=== PATIENT | female | born 1985 | race Caucasian/White ===

== ENCOUNTER 2016-09-02 18:32 | Emergency (ER) | payer MEDICAID ==
[2016-09-02] MEDS ORDERED: CLINDAMYCIN 150 MG CAPSULE PO STA (19:35)
[2016-09-02] MEDS ORDERED: CLINDAMYCIN 150 MG CAPSULE PO ONE (19:36)
== END 2016-09-02 19:38 | disposition home or self-care (01) ==
DX: O23.11 Infections of bladder in pregnancy, first trimester (principal); B95.62 Methicillin resistant Staphylococcus aureus infection as the cause of diseases classified elsewhere; O99.89 Other specified diseases and conditions complicating pregnancy, childbirth and the puerperium; R03.0 Elevated blood-pressure reading, without diagnosis of hypertension; Z3A.01 Less than 8 weeks gestation of pregnancy
CPT/HCPCS: 99283; A9270

== ENCOUNTER 2018-08-13 10:28 | Emergency (ER) | payer MEDICAID ==
[2018-08-13] MEDS ORDERED: TETANUS/DIPHTHERIA/PERTUSSIS 0.5 ML SYRINGE IM ONE (13:44)
[2018-08-13] MEDS ORDERED: AMOX/CLAV 875 MG/125 MG TABLET PO STA (13:44)
[2018-08-13 14:06] VITALS: BP 135/85
--- NOTE | 2018-08-13 14:12 | ED Physician Documentation ---
PD HPI ANIMAL BITE - Stated complaint Stated Complaint: DOG BITE/L HAND - Chief complaint Chief Complaint: Laceration - History obtained from History obtained from: Patient - History of Present Illness Location of injury(ies): Left hand Details of the event: Dog Timing - onset: How many hours ago (2) Similar symptoms before: Has not had sx before - Additional information Additional information: The patient is a 32-year-old female who was bitten in the left hand by a stray dog this morning when she was trying to keep her dog and the other dog from interacting. She is right-hand dominant. She denies any other injuries. Her last tetanus booster is unknown. The dog's rabies vaccination status is unknown. Review of Systems Constitutional: denies: Fever Skin: reports: Bite / sting Musculoskeletal: denies: Extremity swelling Neurologic: denies: Focal weakness, Numbness PD PAST MEDICAL HISTORY - Past Medical History Endocrine/Autoimmune: None : Chronic bladder infection - Past Surgical History Past Surgical History: Yes General: Colonoscopy - Present Medications Home Medications: Ambulatory Orders Medication Instructions Recorded Confirmed Clindamycin [Cleocin] 300 mg PO Q6H 7 Days capsule 09/02/16 Amox/Clav 875/125 [Augmentin] 1 each PO Q12H #10 tablet 08/13/18 - Allergies Allergies/Adverse Reactions: Allergies Allergy/AdvReac Type Severity Reaction Status Date / Time No Known Drug Allergies Allergy Verified 09/02/16 18:44 - Social History Does the pt smoke?: No Smoking Status: Never smoker Does the pt drink ETOH?: No Does the pt have substance abuse?: No - Immunizations Immunizations are current?: No Immunizations: TDAP >10years/unknown PD ED PE NORMAL - Vitals Vital signs reviewed: Yes (normal) - General General: Alert and oriented X 3, Well developed/nourished - HEENT HEENT: Atraumatic - Respiratory Respiratory: No respiratory distress - Derm Derm: No rash - Extremities Extremities: Other (There is a puncture wound on the dorsal aspect of the left hand at the base of the thumb. She has full flexion and extension of the IP and MCP joints, against resistance. Distal neurovascular is intact.) - Neuro Neuro: Alert and oriented X 3, No motor deficit, No sensory deficit Results - Vitals Vitals: Vital Signs - 24 hr 03/22/19 03/22/19 11:15 14:04 Temperature 36.6 C 36.5 C Heart Rate 86 95 Respiratory 18 16 Rate Blood Pressure 134/83 H 135/85 H O2 Saturation 99 100 Oxygen O2 Source Room air PD MEDICAL DECISION MAKING - ED course Complexity details: re-evaluated patient, considered differential, d/w patient ED course: The patient's presentation is significant for a dog bite to the left hand with an associated puncture wound. There is no clinical evidence to suggest a bony abnormality, nerve or tendon injury, or foreign body. Treatment in the emergency department included cleaning of the wound, administration of Augmentin 875 mg orally, and administration of tetanus booster IM. She is being discharged with prescription for Augmentin. I discussed with her the expected course of injury, antibiotic treatment and outpatient follow-up, as well as potentially worrisome signs or symptoms that should prompt reevaluation in the emergency department. Departure - Departure Disposition: 01 Home, Self Care Clinical Impression: Dog bite Qualifiers: Encounter type: initial encounter Qualified Code(s): W54.0XXA - Bitten by dog, initial encounter Condition: Stable Instructions: ED Bite Animal General Prescriptions: Amox/Clav 875/125 [Augmentin] 1 each PO Q12H #10 tablet Comments: Keep the wound clean, and apply antibiotic ointment daily. Take Augmentin twice daily as prescribed. Follow-up with your primary physician within 1 week if not completely resolved. Return to the emergency department if you develop increasing redness, swelling, or otherwise worsening symptoms. Discharge Date/Time: 08/13/18 14:22
== END 2018-08-13 14:22 | disposition home or self-care (01) ==
LOC: ED 10:28
DX: S61.432A Puncture wound without foreign body of left hand, initial encounter (principal); W54.0XXA Bitten by dog, initial encounter; Z23 Encounter for immunization
CPT/HCPCS: 90471; 90715; 99283; A9270

== ENCOUNTER 2018-08-23 19:12 | Emergency (ER) | payer MEDICAID ==
--- NOTE | 2018-08-23 19:57 | XRAY Report ---
Reason: injury Procedure Date: 08/23/2018 Accession Number: [id number] / [id number] Procedure: XR - Elbow 3 View LT CPT Code: FULL RESULT: EXAM: LEFT ELBOW RADIOGRAPHY EXAM DATE: 08/23/2018 07:49 PM. CLINICAL HISTORY: Injury. COMPARISON: None. TECHNIQUE: 3 views. FINDINGS: Bones: Normal. No fractures or bone lesions. Joints: Normal. No effusion. No subluxation. Soft Tissues: Normal. No soft tissue swelling. IMPRESSION: Normal elbow radiography. RADIA
--- NOTE | 2018-08-23 20:00 | ED Physician Documentation ---
PD HPI UPPER EXT INJURY - Stated complaint Stated Complaint: L ELBOW INJ - Chief complaint Chief Complaint: Ext Problem - History obtained from History obtained from: Patient - History of Present Illness Location: Left, Elbow Type of injury: Fall (slipped on wet floor and landed to elbow. Pain at elbow and numbness to left little fingers.) Where injury occurred: Home Timing - onset: Today Timing - details: Abrupt onset, Still present Worsened by: Moving, Palpating Associated symptoms: Numbness (little finger). No: Weakness Contributing factors: No: Anticoagulated Recently seen: Not recently seen Review of Systems Skin: denies: Abrasion (s), Laceration (s) Neurologic: denies: Confused, Altered mental status, Headache, Head injury PD PAST MEDICAL HISTORY - Past Medical History Past Medical History: No Endocrine/Autoimmune: None : Chronic bladder infection - Past Surgical History Past Surgical History: Yes General: Colonoscopy - Present Medications Home Medications: Ambulatory Orders Medication Instructions Recorded Confirmed Clindamycin [Cleocin] 300 mg PO Q6H 7 Days capsule 09/02/16 Amox/Clav 875/125 [Augmentin] 1 each PO Q12H #10 tablet 08/13/18 - Allergies Allergies/Adverse Reactions: Allergies Allergy/AdvReac Type Severity Reaction Status Date / Time No Known Drug Allergies Allergy Verified 09/02/16 18:44 - Social History Does the pt smoke?: No Smoking Status: Never smoker Does the pt drink ETOH?: No Does the pt have substance abuse?: No - Immunizations Immunizations are current?: No Immunizations: TDAP >10years/unknown PD ED PE NORMAL - Vitals Vital signs reviewed: Yes - General General: Alert and oriented X 3, No acute distress, Well developed/nourished - HEENT HEENT: Atraumatic - Neck Neck: Supple, no meningeal sign, No bony TTP - Derm Derm: Normal color, Warm and dry - Extremities Extremities: Other (left elbow with posterior tenderness. No deformity nor effusion. Normal sanitarian inspector in hand. Less sensation to touch on little finger. Good color and cap refill. Reluctant but normal motor. ) Results - Vitals Vitals: Vital Signs - 24 hr 08/23/18 08/23/18 19:15 20:34 Temperature 37.2 C 36.7 C Heart Rate 100 60 Respiratory 16 16 Rate Blood Pressure 145/88 H 117/81 H O2 Saturation 99 99 Oxygen O2 Source Room air - Rads (name of study) left elbow Radiology: Prelim report reviewed (no fractures nor effusion), See rad report Departure - Departure Disposition: 01 Home, Self Care Clinical Impression: Fall from slip, trip, or stumble Qualifiers: Encounter type: initial encounter Qualified Code(s): W01.0XXA - Fall on same level from slipping, tripping and stumbling without subsequent striking against object, initial encounter Elbow contusion Qualifiers: Encounter type: initial encounter Laterality: left Qualified Code(s): S50.02XA - Contusion of left elbow, initial encounter Condition: Stable Record reviewed to determine appropriate education?: Yes Instructions: ED Contusion Elbow Comments: Sling for the arm to elevate it and protect motion for the next couple a few days as needed. Ibuprofen or naproxen 2-3 times a day for pain and swelling. Progress activity and use as able. Recheck if not better over a week. Forms: Activity restrictions Discharge Date/Time: 08/23/18 20:35
[2018-08-23] MEDS ORDERED: IBUPROFEN 600 MG TABLET PO STA (20:08)
[2018-08-23 20:34] VITALS: BP 117/81
== END 2018-08-23 20:35 | disposition home or self-care (01) ==
LOC: ED 19:12
DX: S50.02XA Contusion of left elbow, initial encounter (principal); W01.0XXA Fall on same level from slipping, tripping and stumbling without subsequent striking against object, initial encounter; Y92.009 Unspecified place in unspecified non-institutional (private) residence as the place of occurrence of the external cause
CPT/HCPCS: 73080; 99283; A9270

== ENCOUNTER 2018-11-04 07:57 | Emergency (ER) | payer MEDICAID ==
--- NOTE | 2018-11-04 08:53 | ED Physician Documentation ---
PD HPI SKIN - Stated complaint Stated Complaint: feet hurt - Chief complaint Chief Complaint: Ext Problem - History obtained from History obtained from: Patient - History of Present Illness Timing - onset: How many weeks ago (2) Timing - duration: Weeks (2) Timing - details: Gradual onset, Still present, Constant. No: Waxing and waning Location: Other (plantar aspect both feet, with redness, feeling of swelling. No noted vesicles nor drainage. Tender for walking. 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 Not persistently wet feet.) Quality / character: Burning, Discolored (red), Swelling (plantar aspects only). No: Itchy, Vesicular, Draining Associated symptoms: No: Myalgias Contributing factors: Other (denies chemical exposures at work, but is on feet with work boots for all day.). No: Exposed to Poison zuhair/oak, Insect bite /sting Similar symptoms before: Has not had sx before Recently seen: Not recently seen Review of Systems Constitutional: reports: Myalgias. denies: Fever, Chills, Fatigue Nose: denies: Rhinorrhea / runny nose, Congestion Throat: denies: Sore throat Respiratory: denies: Cough GI: denies: Nausea, Vomiting, Diarrhea Skin: reports: Rash (redness on plantar aspects feet, more toward the base great toe and between toes.) Musculoskeletal: denies: Neck pain, Back pain, Extremity swelling PD PAST MEDICAL HISTORY - Past Medical History Cardiovascular: None Neuro: None Endocrine/Autoimmune: None : Chronic bladder infection Musculoskeletal: None - Past Surgical History Past Surgical History: Yes General: Colonoscopy - Present Medications Home Medications: Ambulatory Orders Medication Instructions Recorded Confirmed Clindamycin [Cleocin] 300 mg PO Q6H 7 Days capsule 09/02/16 Amox/Clav 875/125 [Augmentin] 1 each PO Q12H #10 tablet 08/13/18 Clotrimazole/Betamethasone Dip 1 applic TP BID #15 cream..g. 11/04/18 [Lotrisone Cream] Naproxen 500 mg PO BID #20 tablet 11/04/18 - Allergies Allergies/Adverse Reactions: Allergies Allergy/AdvReac Type Severity Reaction Status Date / Time No Known Drug Allergies Allergy Verified 11/04/18 08:22 - Social History Does the pt smoke?: No Smoking Status: Never smoker Does the pt drink ETOH?: No Does the pt have substance abuse?: No - Immunizations Immunizations are current?: No Immunizations: TDAP >10years/unknown PD ED PE NORMAL - Vitals Vital signs reviewed: Yes - General General: Alert and oriented X 3, No acute distress, Well developed/nourished - Neck Neck: Supple, no meningeal sign, No adenopathy - Cardiac Cardiac: RRR, No murmur - Respiratory Respiratory: Clear bilaterally - Back Back: No CVA TTP - Derm Derm: Normal color, Warm and dry - Extremities Extremities: Other (both feet with some redness plantar aspects that demarcates on the sides. There is redness to the top of both feet around the webspace of great/2nd toe and to MTP area great toe. ) - Neuro Neuro: No motor deficit, No sensory deficit (hypersensitive on the bottoms of the feet. No vesicles nor drainage. ) Results - Vitals Vitals: Vital Signs - 24 hr 11/04/18 11/04/18 08:19 11:24 Temperature 36.5 C 36.7 C Heart Rate 94 77 Respiratory 14 17 Rate Blood Pressure 151/99 H 125/87 H O2 Saturation 99 99 Oxygen O2 Source Room air - Labs Labs: Laboratory Tests 11/04/18 11/04/18 11/04/18 09:33 09:33 09:33 WBC 8.0 RBC 4.32 Hgb 13.3 Hct 39.7 MCV 92.0 MCH 30.7 MCHC 33.4 RDW 12.9 Plt Count 288 MPV 8.6 Neut # (Auto) 5.3 Lymph # (Auto) 1.7 Kerr # (Auto) 0.8 Eos # (Auto) 0.2 Baso # (Auto) 0.0 Absolute Nucleated RBC 0.01 Nucleated RBC % 0.1 ESR 12 Sodium 136 Potassium 3.6 Chloride 105 Carbon Dioxide 20 L Anion Gap 11.0 BUN 21 H Creatinine 0.7 Estimated GFR (MDRD) 97 Glucose 96 Calcium 9.0 Total Bilirubin 0.6 AST 54 H ALT 60 Alkaline Phosphatase 85 Total Protein 7.2 Albumin 4.2 Globulin 3.0 Albumin/Globulin Ratio 1.4 Lipase 34 TSH 11/04/18 09:33 WBC RBC Hgb Hct MCV MCH MCHC RDW Plt Count MPV Neut # (Auto) Lymph # (Auto) Kerr # (Auto) Eos # (Auto) Baso # (Auto) Absolute Nucleated RBC Nucleated RBC % ESR Sodium Potassium Chloride Carbon Dioxide Anion Gap BUN Creatinine Estimated GFR (MDRD) Glucose Calcium Total Bilirubin AST ALT Alkaline Phosphatase Total Protein Albumin Globulin Albumin/Globulin Ratio Lipase TSH 1.45 PD MEDICAL DECISION MAKING - ED course Complexity details: reviewed results, considered differential (seems likely mike a pedis. Consider neuropathy and can check sugar, TSH, lytes), d/w patient Departure - Departure Disposition: 01 Home, Self Care Clinical Impression: Pain in both feet Tinea pedis Qualifiers: Laterality: bilateral Qualified Code(s): B35.3 - Tinea pedis Condition: Stable Record reviewed to determine appropriate education?: Yes Prescriptions: Clotrimazole/Betamethasone Dip [Lotrisone Cream] 1 applic TP BID #15 cream..g. Naproxen 500 mg PO BID #20 tablet Comments: There is some redness and inflammation around the feet. I think this is likely mostly a fungal skin infection. Treated with the antifungal and anti- inflammatory creams twice daily on the red areas in the bottom of the foot. Use naproxen anti-inflammatory orally twice daily for the next 7 to 10 days. Take it with food. Recheck if not improving over the next several days to week. Forms: Activity restrictions Discharge Date/Time: 11/04/18 11:24
[2018-11-04] MEDS ORDERED: NAPROXEN 250 MG TABLET PO STA (09:22)
[2018-11-04 09:42] LABS: BASOPHILS % (AUTO) 0.6 %; EOSINOPHILS # (AUTO) 0.2 10^3/uL (0.0-0.7); EOSINOPHILS % (AUTO) 2.2 %; HGB - HEMOGLOBIN 13.3 g/dL (12.0-16.0); LYMPHOCYTES # (AUTO) 1.7 10^3/uL (1.5-3.5); LYMPHOCYTES % (AUTO) 21.3 %; MEAN CORPUSCULAR HEMOGLOBIN 30.7 pg (27.0-31.0); MEAN CORPUSCULAR HGB CONC 33.4 g/dL (32.0-36.0); MEAN PLATELET VOLUME 8.6 fL (7.9-10.8); MONOCYTES # (AUTO) 0.8 10^3/uL (0.0-1.0); MONOCYTES % (AUTO) 9.5 %; NEUTROPHILS # (AUTO) 5.3 10^3/uL (1.5-6.6); NEUTROPHILS % (AUTO) 66.4 %; PLT - PLATELET COUNT 288 10^3/uL (130-450); RED BLOOD COUNT 4.32 10^6/uL (4.20-5.40); RED CELL DISTRIBUTION WIDTH 12.9 % (12.0-15.0)
[2018-11-04 09:56] LABS: ALBUMIN 4.2 g/dL (3.2-5.5); ALBUMIN/GLOBULIN RATIO 1.4 (1.0-2.2); BILIRUBIN,TOTAL 0.6 mg/dL (0.2-1.0); CREATININE 0.7 mg/dL (0.4-1.0); TOTAL PROTEIN 7.2 g/dL (6.7-8.2)
[2018-11-04 11:26] VITALS: BP 125/87
== END 2018-11-04 11:24 | disposition home or self-care (01) ==
LOC: ED 07:57
DX: B35.3 Tinea pedis (principal); M79.671 Pain in right foot; M79.672 Pain in left foot
CPT/HCPCS: 36415; 80053; 83690; 84443; 85025; 85651; 99283; A9270

== ENCOUNTER 2019-07-10 20:11 | Outpatient (CLI) | payer MEDICAID ==
[2019-07-10 20:28] VITALS: BP 131/84
--- NOTE | 2019-07-10 23:00 | PROCEDURE REPORT ---
- HPI Diagnosis/Indication for NST: Decreased movement (ER visit) Current EDU 09/07/19 Gestation 31 Weeks and 4 Days 6 Para 4 Vital Signs Temperature 98.5 F 07/10/19 20:26 Heart Rate 81 07/10/19 20:26 Respiratory Rate 20 07/10/19 20:26 Blood Pressure 131/84 H 07/10/19 20:26 O2 Saturation 100 07/10/19 20:26 Temperature 98.5 F 07/10/19 20:26 Heart Rate 81 07/10/19 20:26 Respiratory Rate 20 07/10/19 20:26 Blood Pressure 131/84 H 07/10/19 20:26 O2 Saturation 100 07/10/19 20:26 - NST Procedure NST Procedure Start Date 07/10/19 Start Time 20:25 Stop Time 20:45 Vibroacoustic Stimulation Used No Patient States Movement Yes: decreased but present. - Results and Plan Findings/Impression: Pt came to ER for eval of cough and rib pain. She complained of decreased movement and so she was sent first to OB triage for evaluation. Pt speaking in full sentences. AVSS. No respiratory distress. NST category 1 [place] neg MVP 5.3cm ; ultrasound printer not functioning currently. A/P: reassuring well being. To ER for eval of cough.
== END 2019-07-10 20:50 | disposition home or self-care (01) ==
LOC: WFO 20:11 → FBP 20:12 → WFO 20:50
PROVIDERS: ATTEND Obstetrics & Gynecology
DX: O36.8130 Decreased fetal movements, third trimester, not applicable or unspecified (principal); Z3A.31 31 weeks gestation of pregnancy; R05 Cough; R07.81 Pleurodynia
CPT/HCPCS: 59025

== ENCOUNTER 2019-07-10 20:50 | Emergency (ER) | payer MEDICAID ==
--- NOTE | 2019-07-10 21:02 | ED Physician Documentation ---
History of Present Illness - Stated complaint Stated Complaint: COLD SX, LT SIDE PX - Chief complaint Chief Complaint: Resp - History obtained from History obtained from: Patient (Patient is a 33-year-old female who is a G5, P4 at 31 weeks by LMP presents with a chief complaint of a 2-week history of cough and now presents with left-sided rib pain she denies any trauma she denies any history of pulmonary embolism or DVT she denies any hemoptysis. She reports cold and flulike symptoms for the past 2 weeks and comes to the ER tonight for evaluation. The patient reports she has been feeling the baby move as usual she denies any vaginal bleeding or any leakage of fluid or any scotomas or headaches or lower extremity swelling. She did go to the OB floor and had an NST prior to arrival in the ER.) Review of Systems Constitutional: reports: Reviewed and negative Eyes: reports: Reviewed and negative Ears: reports: Reviewed and negative Nose: reports: Reviewed and negative Throat: reports: Reviewed and negative Cardiac: reports: Reviewed and negative Respiratory: reports: Cough, Other (Left-sided rib pain) GI: reports: Reviewed and negative : reports: Reviewed and negative Skin: reports: Reviewed and negative Musculoskeletal: reports: Reviewed and negative Neurologic: reports: Reviewed and negative Psychiatric: reports: Reviewed and negative Endocrine: reports: Reviewed and negative Immunocompromised: reports: Reviewed and negative PD PAST MEDICAL HISTORY - Past Medical History Cardiovascular: None Neuro: None Endocrine/Autoimmune: None : Chronic bladder infection Musculoskeletal: None - Past Surgical History Past Surgical History: Yes General: Colonoscopy - Present Medications Home Medications: Ambulatory Orders Medication Instructions Recorded Confirmed Clindamycin [Cleocin] 300 mg PO Q6H 7 Days capsule 09/02/16 Amox/Clav 875/125 [Augmentin] 1 each PO Q12H #10 tablet 08/13/18 Clotrimazole/Betamethasone Dip 1 applic TP BID #15 cream..g. 11/04/18 [Lotrisone Cream] Naproxen 500 mg PO BID #20 tablet 11/04/18 Benzonatate [Tessalon Perle] 100 mg PO BID #7 capsule 07/10/19 - Allergies Allergies/Adverse Reactions: Allergies Allergy/AdvReac Type Severity Reaction Status Date / Time No Known Drug Allergies Allergy Verified 07/10/19 21:01 - Social History Does the pt smoke?: No Smoking Status: Never smoker Does the pt drink ETOH?: No Does the pt have substance abuse?: No - Immunizations Immunizations are current?: No Immunizations: TDAP >10years/unknown PD ED PE NORMAL - Vitals Vital signs reviewed: Yes - General General: Alert and oriented X 3, No acute distress, Well developed/nourished - HEENT HEENT: Atraumatic, PERRL, Moist mucous membranes, Pharynx benign - Neck Neck: Supple, no meningeal sign, No JVD - Cardiac Cardiac: RRR, Strong equal pulses - Respiratory Respiratory: No respiratory distress, Clear bilaterally, Other (There is point tenderness over the left rib In the anterior axillary line of the ribs 6 and 7 in the intercostal space. There is no ecchymosis there is no crepitus.) - Abdomen Abdomen: Normal bowel sounds, Soft, Non tender, Non distended, Other (The abdomen is consistent with a 30-week gravid uterus.) - Female Female : Deferred - Derm Derm: Warm and dry - Extremities Extremities: No deformity - Neuro Neuro: Alert and oriented X 3 - Psych Psych: Normal mood, Normal affect Results - Vitals Vitals: Vital Signs - 24 hr 07/10/19 07/10/19 20:50 23:15 Temperature 36.7 C 36.6 C Heart Rate 87 79 Respiratory 16 18 Rate Blood Pressure 122/84 H 124/78 O2 Saturation 98 98 Oxygen O2 Source Room air - Labs Labs: Laboratory Tests 07/10/19 21:25 Urine Color YELLOW Urine Clarity CLEAR Urine pH 7.0 Ur Specific [place] 1.015 Urine Protein NEGATIVE Urine Glucose (UA) NEGATIVE Urine Ketones NEGATIVE Urine Occult Blood NEGATIVE Urine Nitrite NEGATIVE Urine Bilirubin NEGATIVE Urine Urobilinogen 0.2 (NORMAL) Ur Leukocyte Esterase NEGATIVE Ur Microscopic Review NOT INDICATED Urine Culture Comments NOT INDICATED PD MEDICAL DECISION MAKING - ED course Complexity details: other (Patient updated and reexamined she is well-appearing she reports good movement she reports that her rib discomfort has improved her chest x-ray is unremarkable. The patient was given a short-term treatment with Tessalon Perles for her cough. I explained all the benefits, alternatives and risks of taking Tessalon Perles the patient accepts all risks to include possible harm to the fetus although this unlikely.) Departure - Departure Disposition: 01 Home, Self Care Clinical Impression: Cough, Third trimester Intercostal muscle strain Qualifiers: Encounter type: initial encounter Qualified Code(s): S29.011A - Strain of muscle and tendon of front wall of thorax, initial encounter Condition: Good Instructions: ED URI Viral Follow-Up: Barbie Mcpherson MD [Primary Care Provider] - Tomorrow Prescriptions: Benzonatate [Tessalon Perle] 100 mg PO BID #7 capsule Discharge Date/Time: 07/10/19 23:16
[2019-07-10] MEDS ORDERED: ACETAMINOPHEN 325 MG TABLET PO STA (21:19)
[2019-07-10 21:37] LABS: BILIRUBIN,URINE NEGATIVE (NEGATIVE); GLUCOSE, URINE (UA) NEGATIVE (NEGATIVE); KETONES,URINE (UA) NEGATIVE (NEGATIVE); LEUKOCYTE ESTERASE, URINE NEGATIVE (NEGATIVE); NITRITE,URINE NEGATIVE (NEGATIVE); OCCULT BLOOD,URINE NEGATIVE (NEGATIVE); PROTEIN,URINE NEGATIVE (NEGATIVE); UROBILINOGEN,URINE 0.2 (NORMAL) E.U./dL (NORMAL)
[2019-07-10 21:39] LABS: CLARITY,URINE CLEAR (CLEAR)
--- NOTE | 2019-07-10 22:28 | XRAY Report ---
Reason: cough, left sided rib pain Procedure Date: 07/10/2019 Accession Number: [id number] / [id number] Procedure: XR - Chest 2 View X-Ray CPT Code: 21032 Final Report FULL RESULT: EXAM: CHEST RADIOGRAPHY EXAM DATE: 07/10/2019 09:47 PM. CLINICAL HISTORY: Cough, left sided rib pain. COMPARISON: None. TECHNIQUE: 2 views. FINDINGS: LUNGS: The lungs are clear. PLEURA: No significant pleural effusion. No clinically significant pneumothorax. MEDIASTINUM: The cardiomediastinal silhouette is unremarkable. BONES: No suspicious osseous lesions. IMPRESSION: No acute cardiopulmonary abnormality. RADIA
[2019-07-10 23:16] VITALS: BP 124/78
== END 2019-07-10 23:16 | disposition home or self-care (01) ==
LOC: ED 20:50
DX: O99.89 Other specified diseases and conditions complicating pregnancy, childbirth and the puerperium (principal); R05 Cough; S29.011A Strain of muscle and tendon of front wall of thorax, initial encounter; X58.XXXA Exposure to other specified factors, initial encounter; Z3A.31 31 weeks gestation of pregnancy; O36.8130 Decreased fetal movements, third trimester, not applicable or unspecified
CPT/HCPCS: 59025; 71046; 81003; 99284; 99285; A9270; 81001; 87086

== ENCOUNTER 2021-05-14 15:11 | Outpatient (CLI) | payer MEDICAID ==
[2021-05-14 18:01] LABS: BILIRUBIN,URINE NEGATIVE (NEGATIVE); GLUCOSE, URINE (UA) NEGATIVE (NEGATIVE); KETONES,URINE (UA) TRACE mg/dL (NEGATIVE); LEUKOCYTE ESTERASE, URINE SMALL (NEGATIVE); NITRITE,URINE NEGATIVE (NEGATIVE); OCCULT BLOOD,URINE MODERATE (NEGATIVE); PROTEIN,URINE 30 mg/dL (NEGATIVE); UROBILINOGEN,URINE 0.2 (NORMAL) E.U./dL (NORMAL)
[2021-05-14 18:02] LABS: CLARITY,URINE CLOUDY (CLEAR)
== END 2021-05-14 15:12 | disposition home or self-care (01) ==
LOC: LAB.N 15:11
PROVIDERS: ATTEND Specialist
DX: R39.9 Unspecified symptoms and signs involving the genitourinary system (principal)
CPT/HCPCS: 81003; 87086

== ENCOUNTER 2021-06-17 21:48 | Outpatient (CLI) | payer MEDICAID | END 2021-06-17 21:49 | disposition critical access hospital (66) | LOC: EMS 21:48 | DX: O99.891 Other specified diseases and conditions complicating pregnancy (principal); R53.83 Other fatigue; R11.0 Nausea; R63.0 Anorexia; M79.10 Myalgia, unspecified site; R53.1 Weakness; Z20.822 Contact with and (suspected) exposure to COVID-19 | CPT/HCPCS: A0425; A0429 ==

== ENCOUNTER 2021-06-17 22:06 | Emergency (ER) | payer MEDICAID ==
[2021-06-17] MEDS ORDERED: SODIUM CHLORIDE 0.9% 1,000 ML IV STA (22:17)
[2021-06-17] MEDS ORDERED: ACETAMINOPHEN 500 MG TABLET PO STA (22:17)
[2021-06-17] MEDS ORDERED: ONDANSETRON 4 MG/2 ML VIAL IVP STA (22:17)
--- NOTE | 2021-06-17 22:18 | ED Physician Documentation ---
History of Present Illness - Stated complaint Stated Complaint: BODY PX/NAUSEA/C+ EXPOSURE - History obtained from History obtained from: Patient, EMS - Additonal information Additional information: G8, P5 at 23 weeks gestation, she is not vaccinated against COVID and multiple people in her family are positive for Covid. She has been sick for about 5 days with profound fatigue, nausea, poor appetite, and body aches. Denies cramping or bleeding. No shortness of breath. Review of Systems Constitutional: reports: Chills, Myalgias Nose: denies: Rhinorrhea / runny nose Throat: denies: Sore throat GI: reports: Nausea. denies: Diarrhea Musculoskeletal: denies: Neck pain, Back pain PD PAST MEDICAL HISTORY - Past Medical History Cardiovascular: None Neuro: None Endocrine/Autoimmune: None : Chronic bladder infection Musculoskeletal: None - Past Surgical History Past Surgical History: Yes General: Colonoscopy - Present Medications Home Medications: Ambulatory Orders Medication Instructions Recorded Confirmed Clindamycin [Cleocin] 300 mg PO Q6H 7 Days capsule 09/02/16 Amox/Clav 875/125 [Augmentin] 1 each PO Q12H #10 tablet 08/13/18 Clotrimazole/Betamethasone Dip 1 applic TP BID #15 cream..g. 11/04/18 [Lotrisone Cream] Naproxen 500 mg PO BID #20 tablet 11/04/18 Benzonatate [Tessalon Perle] 100 mg PO BID #7 capsule 07/10/19 Ondansetron Odt [Zofran] 4 mg TL Q6H PRN #10 tablet 06/17/21 - Allergies Allergies/Adverse Reactions: Allergies Allergy/AdvReac Type Severity Reaction Status Date / Time No Known Drug Allergies Allergy Verified 07/10/19 21:01 - Social History Does the pt smoke?: No Smoking Status: Never smoker Does the pt drink ETOH?: No Does the pt have substance abuse?: No - Immunizations Immunizations are current?: No Immunizations: TDAP >10years/unknown PD ED PE NORMAL - Vitals Vital signs reviewed: Yes - General General: Alert and oriented X 3, No acute distress - HEENT HEENT: PERRL, EOMI - Neck Neck: Supple, no meningeal sign, No bony TTP - Cardiac Cardiac: RRR, No murmur - Respiratory Respiratory: No respiratory distress, Clear bilaterally - Abdomen Abdomen: Normal bowel sounds, Soft, Non tender, Other (Bedside ultrasound shows single live intrauterine with a heart rate of about 150.) - Back Back: No CVA TTP, No spinal TTP - Derm Derm: Normal color, Warm and dry - Extremities Extremities: No edema, No calf tenderness / cord - Neuro Neuro: Alert and oriented X 3, Normal speech Results - Vitals Vitals: Vital Signs - 24 hr 06/17/21 06/17/21 06/17/21 22:24 22:28 23:00 Temperature 37.0 C 37.0 C Heart Rate 79 79 74 Respiratory 17 17 18 Rate Blood Pressure 101/73 101/73 110/76 O2 Saturation 98 98 100 06/18/21 00:37 Temperature Heart Rate 74 Respiratory 16 Rate Blood Pressure 102/72 O2 Saturation 100 Oxygen O2 Source Room air - Labs Labs: Laboratory Tests 06/17/21 06/17/21 22:32 22:32 WBC 4.6 L RBC 4.13 L Hgb 13.2 Hct 37.7 MCV 91.3 MCH 32.0 H MCHC 35.0 RDW 12.1 Plt Count 244 MPV 10.8 Neut # (Auto) 3.0 Lymph # (Auto) 1.1 L [place] # (Auto) 0.4 Eos # (Auto) 0.0 Baso # (Auto) 0.0 Absolute Nucleated RBC 0.00 Nucleated RBC % 0.0 Sodium 134 L Potassium 3.5 Chloride 107 Carbon Dioxide 18 L Anion Gap 9.0 BUN 9 Creatinine 0.6 Estimated GFR (MDRD) 114 Glucose 89 Calcium 8.4 L Magnesium 1.8 Total Bilirubin 0.3 AST 14 ALT 16 Alkaline Phosphatase 88 Total Protein 6.4 L Albumin 3.1 L Globulin 3.3 Albumin/Globulin Ratio 0.9 L PD MEDICAL DECISION MAKING - ED course ED course: 35-year-old woman who is presents with likely COVID with classic viral syndrome. Feeling better after Tylenol, Zofran, and IV fluids. Discussed the need for quarantine. Departure - Departure Disposition: 01 Home, Self Care Clinical Impression: Viral syndrome Condition: Good Record reviewed to determine appropriate education?: Yes Instructions: ED Viral Syndrome Prescriptions: Ondansetron Odt [Zofran] 4 mg TL Q6H PRN #10 tablet PRN Reason: Nausea / Vomiting Comments: You have a Covid test pending. You need to self quarantine until the result is done and negative. Do not leave your house. Do not get near anybody. The results should be done in 48 to 72 hours. We will call with a positive result, the fastest way to get a negative result for confirmation though is to go to the hospital website at [email or web address], click on the my [email or web address] tab and sign up for the patient portal. If any friends or family get sick and would like to have a Covid test done, but do not have signs or symptoms that would necessitate being hospitalized, there are multiple local options for Covid testing. [facility] keeps an updated list of testing and vaccination options at: [email or web address]. I sent a prescription for nausea medication to [facility] in [place]. He will need to have someone else go pick that up, someone who is not sick and who has not been exposed to Covid and they can drop it off for you. Take Tylenol per package instructions as needed for the aches and pains. Discharge Date/Time: 06/18/21 01:12
[2021-06-17 22:36] LABS: BASOPHILS % (AUTO) 0.2 %; EOSINOPHILS % (AUTO) 0.4 %; HCT - HEMATOCRIT 37.7 % (37.0-47.0); HGB - HEMOGLOBIN 13.2 g/dL (12.0-16.0); LYMPHOCYTES # (AUTO) 1.1 10^3/uL (1.5-3.5); LYMPHOCYTES % (AUTO) 24.6 %; MEAN CORPUSCULAR VOLUME 91.3 fL (81.0-99.0); MEAN PLATELET VOLUME 10.8 fL (7.9-10.8); MONOCYTES # (AUTO) 0.4 10^3/uL (0.0-1.0); MONOCYTES % (AUTO) 8.9 %; NEUTROPHILS % (AUTO) 65.9 %; PLT - PLATELET COUNT 244 10^3/uL (130-450); RED BLOOD COUNT 4.13 10^6/uL (4.20-5.40); RED CELL DISTRIBUTION WIDTH 12.1 % (12.0-15.0); WHITE BLOOD COUNT 4.6 x10^3/uL (4.8-10.8)
[2021-06-17 22:49] LABS: ALBUMIN 3.1 g/dL (3.2-5.5); ALBUMIN/GLOBULIN RATIO 0.9 (1.0-2.2); BILIRUBIN,TOTAL 0.3 mg/dL (0.2-1.0); CALCIUM 8.4 mg/dL (8.5-10.3); CREATININE 0.6 mg/dL (0.4-1.0); MAGNESIUM 1.8 mg/dL (1.7-2.8); POTASSIUM 3.5 mmol/L (3.5-5.0); TOTAL PROTEIN 6.4 g/dL (6.7-8.2)
[2021-06-17] MEDS ORDERED: LACTATED RINGERS 1,000 ML IV STA (23:02)
[2021-06-18 00:39] VITALS: BP 102/72
== END 2021-06-18 01:12 | disposition home or self-care (01) ==
LOC: EDUNIT# → ED 22:06
DX: O98.512 Other viral diseases complicating pregnancy, second trimester (principal); U07.1 COVID-19; B34.9 Viral infection, unspecified; Z3A.23 23 weeks gestation of pregnancy
CPT/HCPCS: 36415; 80053; 83735; 85025; 87635; 96361; 96374; 99283; A9270; J7120

== ENCOUNTER 2021-06-18 01:07 | Outpatient (CLI) | payer MEDICAID | END 2021-06-18 01:08 | disposition home or self-care (01) | LOC: EMS 01:07 | PROVIDERS: ATTEND Emergency Medicine | DX: U07.1 COVID-19 (principal) | CPT/HCPCS: A0425; A0428 ==

== ENCOUNTER 2021-12-24 13:21 | Emergency (ER) | payer MEDICAID ==
--- OUTSIDE RECORDS SUMMARY | 2021-12-24 13:28 | EXTERNAL MEDICAL SUMMARY RPT | Continuity of Care Document ---
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 6 unknown) (unknown) (no (unknown) (unknown) Number of fetuses:: Single (units (unknown) date) unknown) (unknown) (no (unknown) (unknown) Nutrition and weight gain (units (unknown) date) counseling: special diet: unkn own) further discussion needed (unknown) (no (unknown) (unknown) OB Visit Log (units (u nknown) date) unknown) (unknown) (no (unknown) (unknown) On control at (unit s (unknown) date) conception?: No unknown) (unknown) (no (unknown) (unknown) PFSH (units (unkno wn) date) unknown) (unknown) (no (unknown) (unknown) IN QD-BID PRN #30 g (unit s (unknown) date) 03/13/21 [Rx Confirmed unknown ) 10/17/21] (unknown) (no (unknown) (unknown) PRN to see if it is more (units (unknown) date) effective. Initial blood unkn own) pressure today is mildly (unknown) (no (unknown) (unknown) Painful menstrual periods (units (unknown) date) unknown) (unknown) (no (unknown) (unknown) Para 6 (units ( unknown) date) Spontaneous abortions unknown) 2 (unknown) (no (unknown) (unknown) Para: 6 (units (unkno wn) date) unknown) (unknown) (no (unknown) (unknown) Partner history of STD: ( units (unknown) date) denies hx unknown) (unknown) (no (unknown) (unknown) Partner history of genital (units (unknown) date) herpes: No unknown) (unknown) (no (unknown) (unknown) Partner: Serafin Avila ( units (unknown) date) unknown) (unknown) (no (unknown) (unknown) Past Pregnancies (units (unknown) date) unknown) (unknown) (no (unknown) (unknown) Patient's age 36 years or (units (unknown) date) older as of estimated date unk nown) of delivery: Yes (unknown) (no (unknown) (unknown) Patient: Nova Gonzales (units (unknown) date) MR#: [id number] unknown) (unknown) (no (unknown) (unknown) [facility] (units (unknown) date) mos. other [place] unknow n) (unknown) (no (unknown) (unknown) Personal history of STD: (units (unknown) date) HPV (-2013, next Pap was unkno wn) normal, was told to (unknown) (no (unknown) (unknown) Personal history of (unit s (unknown) date) genital herpes: No unknown) (unknown) (no (unknown) (unknown) Pitocin augmentation x 2 ( units (unknown) date) days. +MRSA in urine unknown) afterwards, treated with oral Abx. (unknown) (no (unknown) (unknown) Position Sitting (unit s (unknown) date) unknown) (unknown) (no (unknown) (unknown) Post (units (un known) date) unknown) (unknown) (no (unknown) (unknown) Sterilization: (units (unknown) date) yes (If unscheduled C/S, unkno wn) may want tubal: please (unknown) (no (unknown) (unknown) depression (un its (unknown) date) associated with second unknown ) (unknown) (no (unknown) (unknown) History (units (unknown) date) unknown) (unknown) (no (unknown) (unknown) type:: Other (u nits (unknown) date) Normal unknown) (unknown) (no (unknown) (unknown) Education (units (unknown) date) unknown) (unknown) (no (unknown) (unknown) Initial (units (unknown) date) Assessment unknown) (unknown) (no (unknown) (unknown) Specific (units (unknown) date) Issues/Plans unknown) (unknown) (no (unknown) (unknown) Testing: (units (unknown) date) discussed unknown) (unknown) (no (unknown) (unknown) Visit (units (unknown) date) unknown) (unknown) (no (unknown) (unknown) education packet: (units (unknown) date) Child education/plan, un known) symptoms, (unknown) (no (unknown) (unknown) labor precautions (units (unknown) date) discussed along with petr unkn own) counts. (unknown) (no (unknown) (unknown) Primary Care Provider: (u nits (unknown) date) none at this time, her unkn own) retired (unknown) (no (unknown) (unknown) Primary Ob Provider: (uni ts (unknown) date) Javier Bishop unknown) (unknown) (no (unknown) (unknown) Prior GBS-Infected child: (units (unknown) date) No unknown) (unknown) (no (unknown) (unknown) Providers (units (unkn own) date) unknown) (unknown) (no (unknown) (unknown) Pt here for 6wk PP (units (unknown) date) unknown) (unknown) (no (unknown) (unknown) Pt reports healing well ( units (unknown) date) unknown) (unknown) (no (unknown) (unknown) Rash or viral illness (un its (unknown) date) since last menstrual unknown) period: No (unknown) (no (unknown) (unknown) Reason For Visit (units (unknown) date) unknown) (unknown) (no (unknown) (unknown) Recent travel outside of (units (unknown) date) country?: No unknown) (unknown) (no (unknown) (unknown) Recurrent loss (units (unknown) date) or a stillbirth: Yes unknown) (unknown) (no (unknown) (unknown) Recurrent urinary tract ( units (unknown) date) infection (12/10/15) unknown) (unknown) (no (unknown) (unknown) Reports Bernardo-Sachs (units (unknown) date) (Ashkenazi Protestant, Cajun, unkn own) Vietnamese English) (Vietnamese English (unknown) (no (unknown) (unknown) Rib pain on left side (un its (unknown) date) () unknown) (unknown) (no (unknown) (unknown) Right flank pain (-2014) (units (unknown) date) unknown) (unknown) (no (unknown) (unknown) Safety (units (unkno wn) date) unknown) (unknown) (no (unknown) (unknown) Sepsis () (units (unknown) date) unknown) (unknown) (no (unknown) (unknown) Signed By: (units (unk nown) date) unknown) (unknown) (no (unknown) (unknown) Smoking Status: Never (un its (unknown) date) smoker unknown) (unknown) (no (unknown) (unknown) Smoking/Tobacco use: (uni ts (unknown) date) discussed unknown) (unknown) (no (unknown) (unknown) Social History (units (unknown) date) unknown) (unknown) (no (unknown) (unknown) Spasm of left piriformis (units (unknown) date) muscle () unknown) (unknown) (no (unknown) (unknown) Status post laparoscopic (units (unknown) date) cholecystectomy (-03/01/20) un known) (unknown) (no (unknown) (unknown) Substance use, Domestic (u nits (unknown) date) violence, Travel, Seatbelt elianak nown) use and Influenza vaccine (No (unknown) (no (unknown) (unknown) Support Person(s):: Serafin (units (unknown) date) - S.O. unknown) (unknown) (no (unknown) (unknown) Surgical History (Reviewed (units (unknown) date) 08/30/21 @ 14:55 by Javier dillon) Jose Bishop MD) (unknown) (no (unknown) (unknown) Surrogate ?: no (units (unknown) date) unknown) (unknown) (no (unknown) (unknown) Symptoms since LMP: (unit s (unknown) date) Reports amenorrhea, nausea, un known) vomiting and fatigue (unknown) (no (unknown) (unknown) Tdap status: immunized (u nits (unknown) date) unknown) (unknown) (no (unknown) (unknown) Teratogen Exposures since (units (unknown) date) LMP/Conception: Denies unknown ) prescription medications, (unknown) (no (unknown) (unknown) The insurance company (un its (unknown) date) denied all regarding unknown) Fioricet was apparently due to an (unknown) (no (unknown) (unknown) The patient has a history (units (unknown) date) precipitous deliveries and unk nown) would be a good candidate (unknown) (no (unknown) (unknown) Third Trimester Education (units (unknown) date) Checklist unknown) (unknown) (no (unknown) (unknown) This note may have been ( units (unknown) date) all or partially generated unk nown) using voice recognition (unknown) (no (unknown) (unknown) Tobacco + Substance Use ( units (unknown) date) unknown) (unknown) (no (unknown) (unknown) Tobacco Status (units (unknown) date) unknown) (unknown) (no (unknown) (unknown) Type of Delivery: (un its (unknown) date) unknown) (unknown) (no (unknown) (unknown) Type(s) of exercise: (uni ts (unknown) date) walking and normal ROM and unk nown) activity ([phone] steps/day (unknown) (no (unknown) (unknown) UProtein Movement PreLabor (units (unknown) date) FHR Fndl Ht Pres Edema Cerv un known) Exam US/Comment Next Appt (unknown) (no (unknown) (unknown) Ultrasound (units (unk nown) date) unknown) (unknown) (no (unknown) (unknown) Ultrasound Details:: Done (units (unknown) date) 03/01/21: FINDINGS: unknown) (unknown) (no (unknown) (unknown) Vaginal delivery (units (unknown) date) unknown) (unknown) (no (unknown) (unknown) Vaginal yeast infection ( units (unknown) date) () unknown) (unknown) (no (unknown) (unknown) Varicella/chicken pox (un its (unknown) date) status: previous disease unkno wn) (Also shingles. ) (unknown) (no (unknown) (unknown) Visit Date: 05/29/21 Last (units (unknown) date) Updated by: Javier Garcia unknown) MD Dario (unknown) (no (unknown) (unknown) Visit Date: 07/03/21 Last (units (unknown) date) Updated by: Javier Garcia unknown) MD Dario (unknown) (no (unknown) (unknown) Visit Date: 07/24/21 Last (units (unknown) date) Updated by: Javier Garcia unknown) MD Dario (unknown) (no (unknown) (unknown) Visit Date: 08/23/21 Last (units (unknown) date) Updated by: Javier Garcia unknown) MD Dario (unknown) (no (unknown) (unknown) Visit Date: 08/30/21 Last (units (unknown) date) Updated by: Javier Garcia unknown) MD Dario (unknown) (no (unknown) (unknown) Visit Date: 03/01/21 Last (units (unknown) date) Updated by: Javier Bishop un known) (unknown) (no (unknown) (unknown) Visit Date: 03/29/21 Last (units (unknown) date) Updated by: Javier Bishop un known) (unknown) (no (unknown) (unknown) Visit Date: 05/01/21 Last (units (unknown) date) Updated by: Javier Garcia unknown) MD Dario (unknown) (no (unknown) (unknown) Visit Reasons: 6wk PP (un its (unknown) date) (Delivered at ), + Pre Op un known) (unknown) (no (unknown) (unknown) Vitals (units (unkno wn) date) unknown) (unknown) (no (unknown) (unknown) Vitamins and iron, Diet ( units (unknown) date) and weight gain, Fish and unkn own) mercury intake (Avoids fish. (unknown) (no (unknown) (unknown) WG (units (unkno wn) date) unknown) (unknown) (no (unknown) (unknown) Zika virus exposure: No ( units (unknown) date) unknown) (unknown) (no (unknown) (unknown) Zofran on an as-needed (u nits (unknown) date) basis ending was encouraged un known) to use water, Gatorade, and (unknown) (no (unknown) (unknown) Zofran to avoid vomiting. (units (unknown) date) Quad screen drawn today. unkno wn) Twenty week anatomy scan (unknown) (no (unknown) (unknown) active and she is doing ( units (unknown) date) kick counts daily. 1 hour unk nown) GDM screen was negative but (unknown) (no (unknown) (unknown) admission and will be (un its (unknown) date) induced if blood pressure unkn own) cannot be adequately controlled (unknown) (no (unknown) (unknown) age. Her recovery from (u nits (unknown) date) COVID continues and she is unk nown) doing well. Her baby remains (unknown) (no (unknown) (unknown) age. She is recovering (u nits (unknown) date) from COVID in doing much unkno wn) better. Her baby is active but (unknown) (no (unknown) (unknown) alcohol intake: former (u nits (unknown) date) (Pre-: occasional unk nown) rare beer/wine) (unknown) (no (unknown) (unknown) anyone in either family ( units (unknown) date) with: unknown) (unknown) (no (unknown) (unknown) as needed and result of ( units (unknown) date) the MFM evaluation will be unk nown) of interest when reported. (unknown) (no (unknown) (unknown) assessment of the ( units (unknown) date) growth and placenta via unknow n) ultrasound. labor (unknown) (no (unknown) (unknown) been controlled at home ( units (unknown) date) and she was actually seen unkn own) in the emergency department (unknown) (no (unknown) (unknown) caffeine: No (units (u nknown) date) unknown) (unknown) (no (unknown) (unknown) caregiver/support person: (units (unknown) date) No unknown) (unknown) (no (unknown) (unknown) caught baby. 3 mos, (units (unknown) date) back to work, pumping. unknown ) intrauterine growth restr Simone (unknown) (no (unknown) (unknown) caught. SGA @ : 5# + (units (unknown) date) oz, pt does not recall unknown ) exact wt. (unknown) (no (unknown) (unknown) changes, or RUQ pain. PTL (units (unknown) date) and PIH/PEC precautions unknow n) reviewed. Patient will (unknown) (no (unknown) (unknown) coconut water as needed to (units (unknown) date) restore her hydration. unknown ) Patient declines genetic (unknown) (no (unknown) (unknown) continues to have (units (unknown) date) difficulty with unknown) constipation and actually was seen in the (unknown) (no (unknown) (unknown) could not tolerate (units (unknown) date) labetalol due to headache unkn own) but her blood pressures have not (unknown) (no (unknown) (unknown) cousin w Autism. ); (unit s (unknown) date) unknown) (unknown) (no (unknown) (unknown) cramping, bleeding, leakage (units (unknown) date) of fluid per vagina, or unknow n) change in vaginal discharge. (unknown) (no (unknown) (unknown) current occupational (uni ts (unknown) date) exposures/hazards: Yes unknown ) (Home septic leak into well water; (unknown) (no (unknown) (unknown) daily servings fruits/veg: (units (unknown) date) 0-1 unknown) (unknown) (no (unknown) (unknown) daughter from previous (u nits (unknown) date) relationship) unknown) (unknown) (no (unknown) (unknown) dehydration. She was (un its (unknown) date) initiated on amlodipine 2.5 un known) mg p.o. b.i.d. because she (unknown) (no (unknown) (unknown) delivery and afterwards ( units (unknown) date) were discussed. The unknown) patient finally had her anatomy (unknown) (no (unknown) (unknown) depending. ) (units (u nknown) date) unknown) (unknown) (no (unknown) (unknown) described, visit schedule (units (unknown) date) reviewed, ultrasounds unknown) policy reviewed, coverage 24 (unknown) (no (unknown) (unknown) desire for sterilization (units (unknown) date) and options for unknown) sterilization around the time of (unknown) (no (unknown) (unknown) discuss. ) (units (unk nown) date) unknown) (unknown) (no (unknown) (unknown) discussed and coordinated (units (unknown) date) further along in the unknown) . Follow-up will be in (unknown) (no (unknown) (unknown) do you feel safe at home: (units (unknown) date) Yes unknown) (unknown) (no (unknown) (unknown) during the past year (uni ts (unknown) date) weight has: remained stable un known) (unknown) (no (unknown) (unknown) ea 08/27/21 [Rx Confirmed (units (unknown) date) 10/17/21] unknown) (unknown) (no (unknown) (unknown) early movement. (un its (unknown) date) labor precautions unkn own) reviewed and patient will (unknown) (no (unknown) (unknown) education level: master's (units (unknown) date) degree (in Psychology.) unknow n) (unknown) (no (unknown) (unknown) eggplant Allergy (Severe, (units (unknown) date) Verified 10/17/21 13:36) unkno wn) (unknown) (no (unknown) (unknown) elevated (134/88)the (uni ts (unknown) date) patient has no prior unknown) history of pre gestational (unknown) (no (unknown) (unknown) emergency department of ( units (unknown) date) [facility] for rectal unk nown) bleeding associated with (unknown) (no (unknown) (unknown) equal dates today and (un its (unknown) date) heart tones were unknown ) audible with Doppler. Follow-up (unknown) (no (unknown) (unknown) arin/yazidism: (units (unknown) date) Non-mosque unknown) (unknown) (no (unknown) (unknown) famotidine 20 mg tablet ( units (unknown) date) (Pepcid AC) 20 mg PO BID unkno wn) #60 tab 08/27/21 [Rx Confirmed (unknown) (no (unknown) (unknown) fecal impaction. That has (units (unknown) date) resolved somewhat but she unkn own) has not had a BM in 3 days (unknown) (no (unknown) (unknown) finally received a (units (unknown) date) prescription for Zofran unknow n) yesterday which has made it possible (unknown) (no (unknown) (unknown) flu shots; no COVID (unit s (unknown) date) vaccines. ) unknown) (unknown) (no (unknown) (unknown) follow-up in 4 weeks or as (units (unknown) date) needed. unknown) (unknown) (no (unknown) (unknown) foods for the duration of (units (unknown) date) the . She denies unk nown) contractions, bleeding, (unknown) (no (unknown) (unknown) for admission at 39 weeks (units (unknown) date) with AROM and close unknown) observation for rapid progress in (unknown) (no (unknown) (unknown) for her Zofran was sent ( units (unknown) date) today. Also bothering the unk nown) patient are daily headaches (unknown) (no (unknown) (unknown) for her to hold down some (units (unknown) date) food and fluids today. She un known) will continue using the (unknown) (no (unknown) (unknown) frequency: does not (unit s (unknown) date) exercise (x2 weeks, on the unk nown) couch, feeling poorly. ) (unknown) (no (unknown) (unknown) gallbladder removal. Would (units (unknown) date) like referral to unknown) nutionist.) (unknown) (no (unknown) (unknown) had a child with (u nits (unknown) date) defects not listed above unkno wn) and Denies Other (unknown) (no (unknown) (unknown) had her initial blood draw (units (unknown) date) today for her unknown ) labs. She has been having (unknown) (no (unknown) (unknown) have occurred. If there (units (unknown) date) are any questions, please unkn own) contact the Medical Records (unknown) (no (unknown) (unknown) headaches continue and are (units (unknown) date) clearly in a tension unknown) headache distribution/pattern. (unknown) (no (unknown) (unknown) headaches which respond to (units (unknown) date) Tylenol but denies unknown) persistent PAIGE's, any visual (unknown) (no (unknown) (unknown) heartbeat measuring 8 (un its (unknown) date) weeks 0 days. unknown) (unknown) (no (unknown) (unknown) her hemoglobin is (units (unknown) date) borderline therefore she unkno wn) will increase intake of iron rich (unknown) (no (unknown) (unknown) heritage but no known (uni ts (unknown) date) issues. ) and Reports unknown) Mental Retardation/Autism (1 distant (unknown) (no (unknown) (unknown) history with Dr. Mcpherson but (units (unknown) date) no avail appts. May switch unk nown) to [facility] for next appt (OK (unknown) (no (unknown) (unknown) hospitalization for (unit s (unknown) date) elevated blood pressure, unkno wn) nausea and vomiting, headache, and (unknown) (no (unknown) (unknown) hours a day and (units (unknown) date) participation of father in unk nown) care and office visits (unknown) (no (unknown) (unknown) household members: (units (unknown) date) significant other and unknown) children (part custody of partner's (unknown) (no (unknown) (unknown) housing: other (units (unknown) date) (Double-wide trailer.) unknown ) (unknown) (no (unknown) (unknown) hydrocodone [From Vicodin] (units (unknown) date) Allergy (Intermediate, unknown ) Verified 10/17/21 13:36) (unknown) (no (unknown) (unknown) hydrocortisone 2.5 % (unit s (unknown) date) topical cream with perineal un known) applicator (Anusol-HC) 1 applic (unknown) (no (unknown) (unknown) hypertension or gestational (units (unknown) date) hypertension/preeclampsia unkn own) with previous pregnancies. (unknown) (no (unknown) (unknown) idural IH w [facility] 18 (uni ts (unknown) date) unknown) (unknown) (no (unknown) (unknown) in 5 weeks or as needed. (units (unknown) date) unknown) (unknown) (no (unknown) (unknown) incorrect dosage and is ( units (unknown) date) resolved. The patient's unkno wn) nausea persists but she is (unknown) (no (unknown) (unknown) increased sense of pelvic (units (unknown) date) pressure. She believe she unk nown) has started feeling some (unknown) (no (unknown) (unknown) labor. She also (units (unknown) date) expresses a desire for unknown ) elective sterilization which will be (unknown) (no (unknown) (unknown) lately and her clinical ( units (unknown) date) picture is most consistent unk nown) with RSV. Follow-up will be (unknown) (no (unknown) (unknown) leakage of fluid per (uni ts (unknown) date) vagina, or change in unknown) discharge. Patient reiterates her (unknown) (no (unknown) (unknown) length and (units (unk nown) date) unknown) (unknown) (no (unknown) (unknown) lives independently: Yes (units (unknown) date) unknown) (unknown) (no (unknown) (unknown) low yield. (units (unk nown) date) unknown) (unknown) (no (unknown) (unknown) marital status: (units (unknown) date) unmarried,living together unkn own) (unknown) (no (unknown) (unknown) may occur. Occasional (u nits (unknown) date) wrong-word or 'sound-alike' un known) substitutions may have (unknown) (no (unknown) (unknown) metoclopramide HCl 10 mg (units (unknown) date) tablet (Reglan) 10 mg PO unkno wn) Q6H PRN #30 tab 08/23/21 [Rx (unknown) (no (unknown) (unknown) monitor blood pressures at (units (unknown) date) home. Follow-up will be in un known) 2 weeks or as needed. HHS (unknown) (no (unknown) (unknown) mos. none Marco Antonio (u nits (unknown) date) unknown) (unknown) (no (unknown) (unknown) negative. Chest is clear (units (unknown) date) to auscultation. Patient unkn own) also continues to have (unknown) (no (unknown) (unknown) nifedipine 30 mg (units (unknown) date) tablet,extended release 30 unk nown) mg PO DAILY #30 tab 10/02/21 [Rx (unknown) (no (unknown) (unknown) night. Other members of ( units (unknown) date) the family have also been unkn own) sick. COVID testing today is (unknown) (no (unknown) (unknown) none [facility] mk [facility], Nurse (units (unknown) date) unknown) (unknown) (no (unknown) (unknown) none Sharron (units (unknown) date) unknown) (unknown) (no (unknown) (unknown) normally.) (units (unk nown) date) unknown) (unknown) (no (unknown) (unknown) now. Patient will (units (unknown) date) initiate MiraLax twice unknown ) daily and increase fluids as (unknown) (no (unknown) (unknown) number of children: 6 (un its (unknown) date) unknown) (unknown) (no (unknown) (unknown) obtained. 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 ) (unknown) (no (unknown) (unknown) occurred due to the (unit s (unknown) date) inherent limitations of unknow n) voice recognition software. Please (unknown) (no (unknown) (unknown) ondansetron 4 mg (units (unknown) date) disintegrating tablet See unkn own) Rx Instructions .ROUTE .COMPLEX #20 (unknown) (no (unknown) (unknown) ondansetron HCl 8 mg tablet (units (unknown) date) 8 mg PO Q8H #90 tab unknown) 08/27/21 [Rx Confirmed 10/17/21] (unknown) (no (unknown) (unknown) ongoing for over a month ( units (unknown) date) and her cough is unknown) particularly bad when she lays down at (unknown) (no (unknown) (unknown) or change in vaginal (uni ts (unknown) date) discharge. She also denies un known) any sort of cramping or (unknown) (no (unknown) (unknown) or contractions/increased (units (unknown) date) pressure. She was unable unkn own) to get her 20 week anatomy (unknown) (no (unknown) (unknown) order placed. Patient is (units (unknown) date) not having any bleeding, unkno wn) leakage of fluid per vagina, (unknown) (no (unknown) (unknown) percentile and there is a (units (unknown) date) 3 cm lesion noted within unkno wn) the substance of the (unknown) (no (unknown) (unknown) pets and animals: Yes (1 (units (unknown) date) cat, dog, bird, rabbit, unknow n) snake: aware of cat (unknown) (no (unknown) (unknown) placenta. Will initiate (units (unknown) date) maternal consultation un known) for more detailed (unknown) (no (unknown) (unknown) precautions discussed (un its (unknown) date) along with kick counts. unknow n) Follow-up will be in 4 weeks or (unknown) (no (unknown) (unknown) precautions. ) (units (unknown) date) unknown) (unknown) (no (unknown) (unknown) prenat.vits,leonardo,min-iron-f (units (unknown) date) olic 1 tab PO DAILY unknown) 03/01/21 [History Confirmed (unknown) (no (unknown) (unknown) prevention (units (unk nown) date) unknown) (unknown) (no (unknown) (unknown) productive cough, sore (un its (unknown) date) throat, and postnasal drip unk nown) with congestion. This is been (unknown) (no (unknown) (unknown) read the note carefully ( units (unknown) date) and recognize, using unknown) context, where these substitutions (unknown) (no (unknown) (unknown) related food intolerances, (units (unknown) date) minimal intake with unknown) hyperemesis. (unknown) (no (unknown) (unknown) rm epidural (units (un known) date) unknown) (unknown) (no (unknown) (unknown) s (units (unkno wn) date) unknown) (unknown) (no (unknown) (unknown) scan due to COVID and has (units (unknown) date) had difficulty rescheduling un known) above the anatomy scan (unknown) (no (unknown) (unknown) scan performed which showed (units (unknown) date) normal anatomy but her unknown ) baby's EFW is only in the 6th (unknown) (no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 ts (unknown) date) unknown) (unknown) (no (unknown) (unknown) Heart rate: 157 beats per (units (unknown) date) minute unknown) (unknown) (no (unknown) (unknown) Height 5 ft 3 in (unit s (unknown) date) unknown) (unknown) (no (unknown) (unknown) Hemophilia or other blood (units (unknown) date) disorders, Denies Cystic unkno wn) Fibrosis, Denies Denita's (unknown) (no (unknown) (unknown) Hemorrhoid () (units (unknown) date) unknown) (unknown) (no (unknown) (unknown) Hepatitis C risk (units (unknown) date) evaluation: low risk unknown) (unknown) (no (unknown) (unknown) Her nausea seems to have (units (unknown) date) returned despite use of unknow n) Zofran. Will switch to Reglan (unknown) (no (unknown) (unknown) History of Hepatitis B: No (units (unknown) date) unknown) (unknown) (no (unknown) (unknown) History of Hepatitis C: No (units (unknown) date) unknown) (unknown) (no (unknown) (unknown) History of UTI () (u nits (unknown) date) unknown) (unknown) (no (unknown) (unknown) History of (units (unk nown) date) esophagogastroduodenoscopy unk nown) (EGD) () (unknown) (no (unknown) (unknown) History/Interim Details ( units (unknown) date) unknown) (unknown) (no (unknown) (unknown) [facility] (units (u nknown) date) unknown) (unknown) (no (unknown) (unknown) Hx # Pregnancies (units (unknown) date) 0 Elective unknown) abortions 0 (unknown) (no (unknown) (unknown) Hx # Term Pregnancies (un its (unknown) date) 5 Ectopic pregnancies unk nown) 0 (unknown) (no (unknown) (unknown) Hyperemesis gravidarum (u nits (unknown) date) (-06/2010) unknown) (unknown) (no (unknown) (unknown) IMPRESSION: Living early (units (unknown) date) 1st trimester intrauterine unk nown) with crown-rump (unknown) (no (unknown) (unknown) Infant Weight: 3# ( units (unknown) date) 7oz unknown) (unknown) (no (unknown) (unknown) Infant Longest Sleep: 3 ( units (unknown) date) hours unknown) (unknown) (no (unknown) (unknown) feeding plan: (uni ts (unknown) date) exclusive unknow n) (unknown) (no (unknown) (unknown) Infant will be adopted?: (units (unknown) date) no unknown) (unknown) (no (unknown) (unknown) Infant's Name: Radha ( units (unknown) date) unknown) (unknown) (no (unknown) (unknown) Infant's Sex: Female (uni ts (unknown) date) unknown) (unknown) (no (unknown) (unknown) Infection History (units (unknown) date) unknown) (unknown) (no (unknown) (unknown) Infectious Disease (units (unknown) date) Education unknown) (unknown) (no (unknown) (unknown) Infectious disease (units (unknown) date) exposure: Toxoplasmosis unknow n) precautions and Listeriosis (unknown) (no (unknown) (unknown) Initial Weight: 170 lb (u nits (unknown) date) unknown) (unknown) (no (unknown) (unknown) Initials (units (unkno wn) date) unknown) (unknown) (no (unknown) (unknown) Intake (units (unkno wn) date) unknown) (unknown) (no (unknown) (unknown) Intake Clinical Staff (un its (unknown) date) unknown) (unknown) (no (unknown) (unknown) Intake Note: (units (u nknown) date) unknown) (unknown) (no (unknown) (unknown) Intake performed by: (uni ts (unknown) date) Nancarrow,Ritchie unknown) (unknown) (no (unknown) (unknown) [place]: Reports not (units (unknown) date) resumed unknown) (unknown) (no (unknown) (unknown) Interim control (un its (unknown) date) method: Reports none unknown) (unknown) (no (unknown) (unknown) Live with someone with TB (units (unknown) date) or exposed to TB: No unknown) (unknown) (no (unknown) (unknown) Loc: [facility] (units (unkno wn) date) unknown) (unknown) (no (unknown) (unknown) Low back pain () (units (unknown) date) unknown) (unknown) (no (unknown) (unknown) 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 unkno wn) (unknown) (no (unknown) (unknown) Medical History (Updated (units (unknown) date) 09/12/21 @ 00:00 by ) unknown) (unknown) (no (unknown) (unknown) Medications (units (un known) date) unknown) (unknown) (no (unknown) (unknown) Menstrual History (units (unknown) date) unknown) (unknown) (no (unknown) (unknown) Menstrual cycle length: 28 (units (unknown) date) regular unknown) (unknown) (no (unknown) (unknown) Metabolic Disorder (units (unknown) date) (EG,TYPE 1 Diabetes, PKU), unk nown) Denies Patient or baby's father (unknown) (no (unknown) (unknown) Migraines () (units (unknown) date) unknown) (unknown) (no (unknown) (unknown) Mother Brain tumor (uni ts (unknown) date) (benign) unknown) (unknown) (no (unknown) (unknown) New (units (unkno wn) date) unknown) (unknown) (no (unknown) (unknown) Notes (units (unkno wn) date) unknown) (unknown) (no (unknown) (unknown) Number of Living Children (units (unknown) date) 5 unknown) (unknown) (no (unknown) (unknown) Number of Weeks Post (uni ts (unknown) date) : 6 unknown) (unknown) (no (unknown) (unknown) Number of fetuses:: Single (units (unknown) date) unknown) (unknown) (no (unknown) (unknown) Nutrition and weight gain (units (unknown) date) counseling: special diet: unkn own) further discussion needed (unknown) (no (unknown) (unknown) OB Visit Log (units (u nknown) date) unknown) (unknown) (no (unknown) (unknown) On control at (unit s (unknown) date) conception?: No unknown) (unknown) (no (unknown) (unknown) PFSH (units (unkno wn) date) unknown) (unknown) (no (unknown) (unknown) IN QD-BID PRN #30 g (unit s (unknown) date) 03/13/21 [Rx Confirmed unknown ) 10/17/21] (unknown) (no (unknown) (unknown) PRN to see if it is more (units (unknown) date) effective. Initial blood unkn own) pressure today is mildly (unknown) (no (unknown) (unknown) Pain Control: Reports (un its (unknown) date) Controlled unknown) (unknown) (no (unknown) (unknown) Painful menstrual periods (units (unknown) date) unknown) (unknown) (no (unknown) (unknown) Pap is current there for (units (unknown) date) follow-up after postop unknown ) visit will be on an as-needed (unknown) (no (unknown) (unknown) Para 6 (units ( unknown) date) Spontaneous abortions unknown) 2 (unknown) (no (unknown) (unknown) Para: 6 (units (unkno wn) date) unknown) (unknown) (no (unknown) (unknown) Partner history of STD: ( units (unknown) date) denies hx unknown) (unknown) (no (unknown) (unknown) Partner history of genital (units (unknown) date) herpes: No unknown) (unknown) (no (unknown) (unknown) Partner: Serafin Avila ( units (unknown) date) unknown) (unknown) (no (unknown) (unknown) Past Pregnancies (units (unknown) date) unknown) (unknown) (no (unknown) (unknown) Patient counseled (units (unknown) date) regarding alternatives, unknow n) risks, benefits, and potential (unknown) (no (unknown) (unknown) Patient is doing extremely (units (unknown) date) well following delivery of unk nown) her infant down at [facility]. (unknown) (no (unknown) (unknown) Patient is scheduled for (units (unknown) date) laparoscopic bilateral unknown ) salpingectomy on 11/01/2021. (unknown) (no (unknown) (unknown) Patient's age 36 years or (units (unknown) date) older as of estimated date unk nown) of delivery: Yes (unknown) (no (unknown) (unknown) Patient: Nova Gonzales (units (unknown) date) MR#: [id number] unknown) (unknown) (no (unknown) (unknown) [facility] 18 (units (unknown) date) mos. other [place] unknow n) (unknown) (no (unknown) (unknown) Perineum: other (Deferred) (units (unknown) date) unknown) (unknown) (no (unknown) (unknown) Personal history of STD: (units (unknown) date) HPV (, next Pap was unkno wn) normal, was told to (unknown) (no (unknown) (unknown) Personal history of (unit s (unknown) date) genital herpes: No unknown) (unknown) (no (unknown) (unknown) Pitocin augmentation x 2 ( units (unknown) date) days. +MRSA in urine unknown) afterwards, treated with oral Abx. (unknown) (no (unknown) (unknown) Plan (units (unkno wn) date) unknown) (unknown) (no (unknown) (unknown) Position Sitting (unit s (unknown) date) unknown) (unknown) (no (unknown) (unknown) Post (units (un known) date) unknown) (unknown) (no (unknown) (unknown) Post Order (units (unknown) date) Checklist unknown) (unknown) (no (unknown) (unknown) Sterilization: (units (unknown) date) yes (If unscheduled C/S, unkno wn) may want tubal: please (unknown) (no (unknown) (unknown) depression (un its (unknown) date) associated with second unknown ) (unknown) (no (unknown) (unknown) Complications: (units (unknown) date) hypertension unknown) (unknown) (no (unknown) (unknown) History (units (unknown) date) unknown) (unknown) (no (unknown) (unknown) type:: Other (u nits (unknown) date) Normal unknown) (unknown) (no (unknown) (unknown) Education (units (unknown) date) unknown) (unknown) (no (unknown) (unknown) Initial (units (unknown) date) Assessment unknown) (unknown) (no (unknown) (unknown) Specific (units (unknown) date) Issues/Plans unknown) (unknown) (no (unknown) (unknown) Testing: (units (unknown) date) discussed unknown) (unknown) (no (unknown) (unknown) Visit (units (unknown) date) unknown) (unknown) (no (unknown) (unknown) education packet: (units (unknown) date) Child education/plan, un known) symptoms, (unknown) (no (unknown) (unknown) labor precautions (units (unknown) date) discussed along with petr bustos own) counts. (unknown) (no (unknown) (unknown) Primary Care Provider: (u nits (unknown) date) none at this time, her MD unkn own) retired (unknown) (no (unknown) (unknown) Primary Ob Provider: (uni ts (unknown) date) Javier Bishop unknown) (unknown) (no (unknown) (unknown) Prior GBS-Infected child: (units (unknown) date) No unknown) (unknown) (no (unknown) (unknown) Problem-specific ROS (uni ts (unknown) date) positives included with HPI un known) (unknown) (no (unknown) (unknown) Providers (units (unkn own) date) unknown) (unknown) (no (unknown) (unknown) Pt here for 6wk PP (units (unknown) date) unknown) (unknown) (no (unknown) (unknown) Pt reports healing well ( units (unknown) date) unknown) (unknown) (no (unknown) (unknown) ROS (units (unkno wn) date) unknown) (unknown) (no (unknown) (unknown) Rash or viral illness (un its (unknown) date) since last menstrual unknown) period: No (unknown) (no (unknown) (unknown) Reason For Visit (units (unknown) date) unknown) (unknown) (no (unknown) (unknown) Recent travel outside of (units (unknown) date) country?: No unknown) (unknown) (no (unknown) (unknown) Recurrent loss (units (unknown) date) or a stillbirth: Yes unknown) (unknown) (no (unknown) (unknown) Recurrent urinary tract ( units (unknown) date) infection (12/10/15) unknown) (unknown) (no (unknown) (unknown) Reports Bernardo-Sachs (units (unknown) date) (Ashkenazi Protestant, Cajun, unkn own) Vietnamese English) (Vietnamese English (unknown) (no (unknown) (unknown) Rib pain on left side (un its (unknown) date) () unknown) (unknown) (no (unknown) (unknown) Right flank pain (-2014) (units (unknown) date) unknown) (unknown) (no (unknown) (unknown) Safety (units (unkno wn) date) unknown) (unknown) (no (unknown) (unknown) Sepsis () (units (unknown) date) unknown) (unknown) (no (unknown) (unknown) She sustained no perineal (units (unknown) date) lacerations and has already un known) had her 1st post delivery (unknown) (no (unknown) (unknown) Signed By: (units (unk nown) date) <Electronically signed by unkn own) Javier Bishop MD> (unknown) (no (unknown) (unknown) Smoking Status: Never (un its (unknown) date) smoker unknown) (unknown) (no (unknown) (unknown) Smoking/Tobacco use: (uni ts (unknown) date) discussed unknown) (unknown) (no (unknown) (unknown) Social History (units (unknown) date) unknown) (unknown) (no (unknown) (unknown) Spasm of left piriformis (units (unknown) date) muscle () unknown) (unknown) (no (unknown) (unknown) Status post laparoscopic (units (unknown) date) cholecystectomy (-03/01/20) un known) (unknown) (no (unknown) (unknown) Substance use, Domestic (u nits (unknown) date) violence, Travel, Seatbelt unk nown) use and Influenza vaccine (No (unknown) (no (unknown) (unknown) Support Person(s):: Serafin (units (unknown) date) - S.O. unknown) (unknown) (no (unknown) (unknown) Surgical History (Reviewed (units (unknown) date) 08/30/21 @ 14:55 by Javier monroyk nowelicia) Jose Bishop MD) (unknown) (no (unknown) (unknown) Surrogate ?: no (units (unknown) date) unknown) (unknown) (no (unknown) (unknown) Symptoms since LMP: (unit s (unknown) date) Reports amenorrhea, nausea, un known) vomiting and fatigue (unknown) (no (unknown) (unknown) Tdap status: immunized (u nits (unknown) date) unknown) (unknown) (no (unknown) (unknown) Teratogen Exposures since (units (unknown) date) LMP/Conception: Denies unknown ) prescription medications, (unknown) (no (unknown) (unknown) The insurance company (un its (unknown) date) denied all regarding unknown) Fioricet was apparently due to an (unknown) (no (unknown) (unknown) The patient has a history (units (unknown) date) precipitous deliveries and unk nown) would be a good candidate (unknown) (no (unknown) (unknown) Third Trimester Education (units (unknown) date) Checklist unknown) (unknown) (no (unknown) (unknown) This note may have been ( units (unknown) date) all or partially generated unk nown) using voice recognition (unknown) (no (unknown) (unknown) Thyroid: normal (units (unknown) date) unknown) (unknown) (no (unknown) (unknown) Tobacco + Substance Use ( units (unknown) date) unknown) (unknown) (no (unknown) (unknown) Tobacco Status (units (unknown) date) unknown) (unknown) (no (unknown) (unknown) Type of Delivery: (un its (unknown) date) unknown) (unknown) (no (unknown) (unknown) Type(s) of exercise: (uni ts (unknown) date) walking and normal ROM and unk nown) activity ([id number] steps/day (unknown) (no (unknown) (unknown) UProtein Movement PreLabor (units (unknown) date) FHR Fndl Ht Pres Edema Cerv un known) Exam US/Comment Next Appt (unknown) (no (unknown) (unknown) Ultrasound (units (unk nown) date) unknown) (unknown) (no (unknown) (unknown) Ultrasound Details:: Done (units (unknown) date) 03/01/21: FINDINGS: unknown) (unknown) (no (unknown) (unknown) Vaginal delivery (units (unknown) date) unknown) (unknown) (no (unknown) (unknown) Vaginal yeast infection ( units (unknown) date) () unknown) (unknown) (no (unknown) (unknown) Varicella/chicken pox (un its (unknown) date) status: previous disease unkno wn) (Also shingles. ) (unknown) (no (unknown) (unknown) Visit Date: 05/29/21 Last (units (unknown) date) Updated by: Javier Garcia unknown) MD Dario (unknown) (no (unknown) (unknown) Visit Date: 07/03/21 Last (units (unknown) date) Updated by: Javier Garcia unknown) MD Dario (unknown) (no (unknown) (unknown) Visit Date: 07/24/21 Last (units (unknown) date) Updated by: Javier Garcia unknown) MD Dario (unknown) (no (unknown) (unknown) Visit Date: 08/23/21 Last (units (unknown) date) Updated by: Javier Garcia unknown) MD Dario (unknown) (no (unknown) (unknown) Visit Date: 08/30/21 Last (units (unknown) date) Updated by: Javier Garcia unknown) MD Dario (unknown) (no (unknown) (unknown) Visit Date: 03/01/21 Last (units (unknown) date) Updated by: Javier Bishop un known) (unknown) (no (unknown) (unknown) Visit Date: 03/29/21 Last (units (unknown) date) Updated by: Javier Bishop un known) (unknown) (no (unknown) (unknown) Visit Date: 05/01/21 Last (units (unknown) date) Updated by: Javier muir) MD Dario (unknown) (no (unknown) (unknown) Visit Reasons: 6wk PP (un its (unknown) date) (Delivered at ), + Pre Op un known) (unknown) (no (unknown) (unknown) Vitals (units (unkno wn) date) unknown) (unknown) (no (unknown) (unknown) Vitamins and iron, Diet ( units (unknown) date) and weight gain, Fish and unkn own) mercury intake (Avoids fish. (unknown) (no (unknown) (unknown) WG (units (unkno wn) date) unknown) (unknown) (no (unknown) (unknown) Zika virus exposure: No ( units (unknown) date) unknown) (unknown) (no (unknown) (unknown) Zofran on an as-needed (u nits (unknown) date) basis ending was encouraged un known) to use water, Gatorade, and (unknown) (no (unknown) (unknown) Zofran to avoid vomiting. (units (unknown) date) Quad screen drawn today. unkno wn) Twenty week anatomy scan (unknown) (no (unknown) (unknown) [Double electric breast ( units (unknown) date) pump] Use electric breast unkn own) pump and supplies as directed (unknown) (no (unknown) (unknown) active and she is doing ( units (unknown) date) kick counts daily. 1 hour unk nown) GDM screen was negative but (unknown) (no (unknown) (unknown) admission and will be (un its (unknown) date) induced if blood pressure unkn own) cannot be adequately controlled (unknown) (no (unknown) (unknown) after every 3rd day her ( units (unknown) date) blood pressure remains in unkn own) the normal range she can go (unknown) (no (unknown) (unknown) age. Her recovery from (u nits (unknown) date) COVID continues and she is unk nown) doing well. Her baby remains (unknown) (no (unknown) (unknown) age. She is recovering (u nits (unknown) date) from COVID in doing much unkno wn) better. Her baby is active but (unknown) (no (unknown) (unknown) ahead and can discontinue (units (unknown) date) the nifedipine completely unkn own) With plans for periodic (unknown) (no (unknown) (unknown) alcohol intake: former (u nits (unknown) date) (Pre-: occasional unk nown) rare beer/wine) (unknown) (no (unknown) (unknown) anyone in either family ( units (unknown) date) with: unknown) (unknown) (no (unknown) (unknown) as needed and result of ( units (unknown) date) the MFM evaluation will be unk nown) of interest when reported. (unknown) (no (unknown) (unknown) assessment of the ( units (unknown) date) growth and placenta via unknow n) ultrasound. labor (unknown) (no (unknown) (unknown) ay occur. Occasional (un its (unknown) date) wrong-word or 'sound-alike' un known) substitutions may have (unknown) (no (unknown) (unknown) basis with Pap due in 2-3 (units (unknown) date) years. unknown) (unknown) (no (unknown) (unknown) been controlled at home ( units (unknown) date) and she was actually seen unkn own) in the emergency department (unknown) (no (unknown) (unknown) bilateral salpingectomy. (units (unknown) date) unknown) (unknown) (no (unknown) (unknown) blood pressure checks to (units (unknown) date) make sure her pressures are un known) staying in the normal (unknown) (no (unknown) (unknown) caffeine: No (units (u nknown) date) unknown) (unknown) (no (unknown) (unknown) caregiver/support person: (units (unknown) date) No unknown) (unknown) (no (unknown) (unknown) caught baby. 3 mos, (units (unknown) date) back to work, pumping. unknown ) intrauterine growth restr Simone (unknown) (no (unknown) (unknown) caught. SGA @ : 5# + (units (unknown) date) oz, pt does not recall unknown ) exact wt. (unknown) (no (unknown) (unknown) changes, or RUQ pain. PTL (units (unknown) date) and PIH/PEC precautions unknow n) reviewed. Patient will (unknown) (no (unknown) (unknown) coconut water as needed to (units (unknown) date) restore her hydration. unknown ) Patient declines genetic (unknown) (no (unknown) (unknown) complications associated (units (unknown) date) with laparoscopic bilateral un known) salpingectomy for (unknown) (no (unknown) (unknown) continues to have (units (unknown) date) difficulty with unknown) constipation and actually was seen in the (unknown) (no (unknown) (unknown) could not tolerate (units (unknown) date) labetalol due to headache unkn own) but her blood pressures have not (unknown) (no (unknown) (unknown) cousin w Autism. ); (unit s (unknown) date) unknown) (unknown) (no (unknown) (unknown) cramping, bleeding, leakage (units (unknown) date) of fluid per vagina, or unknow n) change in vaginal discharge. (unknown) (no (unknown) (unknown) current occupational (uni ts (unknown) date) exposures/hazards: Yes unknown ) (Home septic leak into well water; (unknown) (no (unknown) (unknown) daily servings fruits/veg: (units (unknown) date) 0-1 unknown) (unknown) (no (unknown) (unknown) daughter from previous (u nits (unknown) date) relationship) unknown) (unknown) (no (unknown) (unknown) dehydration. She was (un its (unknown) date) initiated on amlodipine 2.5 un known) mg p.o. b.i.d. because she (unknown) (no (unknown) (unknown) delivery and afterwards ( units (unknown) date) were discussed. The unknown) patient finally had her anatomy (unknown) (no (unknown) (unknown) depending. ) (units (u nknown) date) unknown) (unknown) (no (unknown) (unknown) described, visit schedule (units (unknown) date) reviewed, ultrasounds unknown) policy reviewed, coverage 24 (unknown) (no (unknown) (unknown) desire for sterilization (units (unknown) date) and options for unknown) sterilization around the time of (unknown) (no (unknown) (unknown) discuss. ) (units (unk nown) date) unknown) (unknown) (no (unknown) (unknown) discussed and coordinated (units (unknown) date) further along in the unknown) . Follow-up will be in (unknown) (no (unknown) (unknown) do you feel safe at home: (units (unknown) date) Yes unknown) (unknown) (no (unknown) (unknown) during the past year (uni ts (unknown) date) weight has: remained stable un known) (unknown) (no (unknown) (unknown) ea 08/27/21 [Rx Confirmed (units (unknown) date) 10/17/21] unknown) (unknown) (no (unknown) (unknown) early movement. (un its (unknown) date) labor precautions unkn own) reviewed and patient will (unknown) (no (unknown) (unknown) education level: master's (units (unknown) date) degree (in Psychology.) unknow n) (unknown) (no (unknown) (unknown) eggplant Allergy (Severe, (units (unknown) date) Verified 10/17/21 13:36) unkno wn) (unknown) (no (unknown) (unknown) elevated (134/88)the (uni ts (unknown) date) patient has no prior unknown) history of pre gestational (unknown) (no (unknown) (unknown) emergency department of ( units (unknown) date) [facility] for rectal unk nown) bleeding associated with (unknown) (no (unknown) (unknown) equal dates today and (un its (unknown) date) heart tones were unknown ) audible with Doppler. Follow-up (unknown) (no (unknown) (unknown) examination of lactating (units (unknown) date) mother unknown) (unknown) (no (unknown) (unknown) arin/yazidism: (units (unknown) date) Non-mosque unknown) (unknown) (no (unknown) (unknown) famotidine 20 mg tablet ( units (unknown) date) (Pepcid AC) 20 mg PO BID unkno wn) #60 tab 08/27/21 [Rx Confirmed (unknown) (no (unknown) (unknown) fecal impaction. That has (units (unknown) date) resolved somewhat but she unkn own) has not had a BM in 3 days (unknown) (no (unknown) (unknown) finally received a (units (unknown) date) prescription for Zofran unknow n) yesterday which has made it possible (unknown) (no (unknown) (unknown) flu shots; no COVID (unit s (unknown) date) vaccines. ) unknown) (unknown) (no (unknown) (unknown) follow-up in 4 weeks or as (units (unknown) date) needed. unknown) (unknown) (no (unknown) (unknown) foods for the duration of (units (unknown) date) the . She denies unk nown) contractions, bleeding, (unknown) (no (unknown) (unknown) for 99 months. Delivered (units (unknown) date) 09/01/21 1 ea 0RF Z39.1 - unkno wn) Encounter for care and (unknown) (no (unknown) (unknown) for admission at 39 weeks (units (unknown) date) with AROM and close unknown) observation for rapid progress in (unknown) (no (unknown) (unknown) for her Zofran was sent ( units (unknown) date) today. Also bothering the unk nown) patient are daily headaches (unknown) (no (unknown) (unknown) for her to hold down some (units (unknown) date) food and fluids today. She un known) will continue using the (unknown) (no (unknown) (unknown) frequency: does not (unit s (unknown) date) exercise (x2 weeks, on the unk nown) couch, feeling poorly. ) (unknown) (no (unknown) (unknown) gallbladder removal. Would (units (unknown) date) like referral to unknown) nutionist.) (unknown) (no (unknown) (unknown) had a child with (u nits (unknown) date) defects not listed above unkno wn) and Denies Other (unknown) (no (unknown) (unknown) had her initial blood draw (units (unknown) date) today for her unknown ) labs. She has been having (unknown) (no (unknown) (unknown) have occurred. If there (units (unknown) date) are any questions, please unkn own) contact the Medical Records (unknown) (no (unknown) (unknown) headaches continue and are (units (unknown) date) clearly in a tension unknown) headache distribution/pattern. (unknown) (no (unknown) (unknown) headaches which respond to (units (unknown) date) Tylenol but denies unknown) persistent PAIGE's, any visual (unknown) (no (unknown) (unknown) heartbeat measuring 8 (un its (unknown) date) weeks 0 days. unknown) (unknown) (no (unknown) (unknown) her hemoglobin is (units (unknown) date) borderline therefore she unkno wn) will increase intake of iron rich (unknown) (no (unknown) (unknown) heritage but no known (uni ts (unknown) date) issues. ) and Reports unknown) Mental Retardation/Autism (1 distant (unknown) (no (unknown) (unknown) history with Dr. Mcpherson but (units (unknown) date) no avail appts. May switch unk nown) to [facility] for next appt (OK (unknown) (no (unknown) (unknown) hospitalization for (unit s (unknown) date) elevated blood pressure, unkno wn) nausea and vomiting, headache, and (unknown) (no (unknown) (unknown) hours a day and (units (unknown) date) participation of father in [employer]) care and office visits (unknown) (no (unknown) (unknown) household members: (units (unknown) date) significant other and unknown) children (part custody of partner's (unknown) (no (unknown) (unknown) housing: other (units (unknown) date) (Double-wide trailer.) unknown ) (unknown) (no (unknown) (unknown) hydrocodone [From Vicodin] (units (unknown) date) Allergy (Intermediate, unknown ) Verified 10/17/21 13:36) (unknown) (no (unknown) (unknown) hydrocortisone 2.5 % (unit s (unknown) date) topical cream with perineal un known) applicator (Anusol-HC) 1 applic (unknown) (no (unknown) (unknown) hypertension or gestational (units (unknown) date) hypertension/preeclampsia unkn own) with previous pregnancies. (unknown) (no (unknown) (unknown) idural IH w [facility] 18 (uni ts (unknown) date) unknown) (unknown) (no (unknown) (unknown) in 5 weeks or as needed. (units (unknown) date) unknown) (unknown) (no (unknown) (unknown) incorrect dosage and is ( units (unknown) date) resolved. The patient's unkno wn) nausea persists but she is (unknown) (no (unknown) (unknown) increased sense of pelvic (units (unknown) date) pressure. She believe she unk nown) has started feeling some (unknown) (no (unknown) (unknown) labor. She also (units (unknown) date) expresses a desire for unknown ) elective sterilization which will be (unknown) (no (unknown) (unknown) lately and her clinical ( units (unknown) date) picture is most consistent unk nown) with RSV. Follow-up will be (unknown) (no (unknown) (unknown) leakage of fluid per (uni ts (unknown) date) vagina, or change in unknown) discharge. Patient reiterates her (unknown) (no (unknown) (unknown) length and (units (unk nown) date) unknown) (unknown) (no (unknown) (unknown) lives independently: Yes (units (unknown) date) unknown) (unknown) (no (unknown) (unknown) low yield. (units (unk nown) date) unknown) (unknown) (no (unknown) (unknown) make it permanently and (u nits (unknown) date) irreversibly unable to bear un known) children without the benefit (unknown) (no (unknown) (unknown) marital status: (units (unknown) date) unmarried,living together unkn own) (unknown) (no (unknown) (unknown) menses. Patient is still (units (unknown) date) adamant about desiring unknown ) sterilization via laparoscopic (unknown) (no (unknown) (unknown) metoclopramide HCl 10 mg (units (unknown) date) tablet (Reglan) 10 mg PO unkno wn) Q6H PRN #30 tab 08/23/21 [Rx (unknown) (no (unknown) (unknown) monitor blood pressures at (units (unknown) date) home. Follow-up will be in un known) 2 weeks or as needed. HHS (unknown) (no (unknown) (unknown) mos. none Marco Antonio (u nits (unknown) date) unknown) (unknown) (no (unknown) (unknown) negative. Chest is clear (units (unknown) date) to auscultation. Patient unkn own) also continues to have (unknown) (no (unknown) (unknown) nifedipine 30 mg (units (unknown) date) tablet,extended release 30 unk nown) mg PO DAILY #30 tab 10/02/21 [Rx (unknown) (no (unknown) (unknown) nifedipine by starting to (units (unknown) date) take it every other day unknow n) then every 3rd day and if (unknown) (no (unknown) (unknown) night. Other members of ( units (unknown) date) the family have also been unkn own) sick. 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 Patient will (units (unknown) date) initiate MiraLax twice unknown ) daily and increase fluids as (unknown) (no (unknown) (unknown) number of children: 6 (un its (unknown) date) unknown) (unknown) (no (unknown) (unknown) obtained. 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 ) (unknown) (no (unknown) (unknown) occurred due to the (unit s (unknown) date) inherent limitations of unknow n) voice recognition software. Please (unknown) (no (unknown) (unknown) of assisted reproductive (units (unknown) date) technology. With full unknown ) understanding of the above a (unknown) (no (unknown) (unknown) ondansetron 4 mg (units (unknown) date) disintegrating tablet See unkn own) Rx Instructions .ROUTE .COMPLEX #20 (unknown) (no (unknown) (unknown) ondansetron HCl 8 mg tablet (units (unknown) date) 8 mg PO Q8H #90 tab unknown) 08/27/21 [Rx Confirmed 10/17/21] (unknown) (no (unknown) (unknown) ongoing for over a month ( units (unknown) date) and her cough is unknown) particularly bad when she lays down at (unknown) (no (unknown) (unknown) or change in vaginal (uni ts (unknown) date) discharge. She also denies un known) any sort of cramping or (unknown) (no (unknown) (unknown) or contractions/increased (units (unknown) date) pressure. She was unable unkn own) to get her 20 week anatomy (unknown) (no (unknown) (unknown) order placed. Patient is (units (unknown) date) not having any bleeding, unkno wn) leakage of fluid per vagina, (unknown) (no (unknown) (unknown) percentile and there is a (units (unknown) date) 3 cm lesion noted within unkno wn) the substance of the (unknown) (no (unknown) (unknown) pets and animals: Yes (1 (units (unknown) date) cat, dog, bird, rabbit, unknow n) snake: aware of cat (unknown) (no (unknown) (unknown) placenta. Will initiate (units (unknown) date) maternal consultation un known) for more detailed (unknown) (no (unknown) (unknown) precautions discussed (un its (unknown) date) along with kick counts. unknow n) Follow-up will be in 4 weeks or (unknown) (no (unknown) (unknown) precautions. ) (units (unknown) date) unknown) (unknown) (no (unknown) (unknown) prenat.vits,leonardo,min-iron-f (units (unknown) date) olic 1 tab PO DAILY unknown) 03/01/21 [History Confirmed (unknown) (no (unknown) (unknown) prevention (units (unk nown) date) unknown) (unknown) (no (unknown) (unknown) productive cough, sore (un its (unknown) date) throat, and postnasal drip unk nown) with congestion. This is been (unknown) (no (unknown) (unknown) range. (units (unkno wn) date) unknown) (unknown) (no (unknown) (unknown) read the note carefully ( units (unknown) date) and recognize, using unknown) context, where these substitutions (unknown) (no (unknown) (unknown) related food intolerances, (units (unknown) date) minimal intake with unknown) hyperemesis. (unknown) (no (unknown) (unknown) rm epidural (units (un known) date) unknown) (unknown) (no (unknown) (unknown) s (units (unkno wn) date) unknown) (unknown) (no (unknown) (unknown) scan due to COVID and has (units (unknown) date) had difficulty rescheduling un known) above the anatomy scan (unknown) (no (unknown) (unknown) scan performed which showed (units (unknown) date) normal anatomy but her unknown ) baby's EFW is only in the 6th (unknown) (no (unknown) (unknown) scopolamine base 1 mg over (units (unknown) date) 3 days transdermal patch 1 unk nown) patch TRANSDERMAL Q72H #10 (unknown) (no (unknown) (unknown) seatbelt use: always (uni ts (unknown) date) unknown) (unknown) (no (unknown) (unknown) second hand exposure: No (units (unknown) date) unknown) (unknown) (no (unknown) (unknown) she denies bleeding, (uni ts (unknown) date) leakage of fluid per unknown) vagina, change in vaginal discharge, (unknown) (no (unknown) (unknown) significant nausea and (u nits (unknown) date) vomiting and she was unknown) provided with a refill of Zofran (unknown) (no (unknown) (unknown) software. 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 Tylenol unk nown) is of limited benefit and (unknown) (no (unknown) (unknown) special arin needs: No ( units (unknown) date) unknown) (unknown) (no (unknown) (unknown) sterilization. In (units (unknown) date) addition she understands unkno wn) that the procedure is 1 which will (unknown) (no (unknown) (unknown) substance use type: does (units (unknown) date) not use unknown) (unknown) (no (unknown) (unknown) tab 08/22/21 [Rx Confirmed (units (unknown) date) 10/17/21] unknown) (unknown) (no (unknown) (unknown) terrible nausea and (unit s (unknown) date) vomiting of unknown) leading to a 10 lb weight loss and (unknown) (no (unknown) (unknown) testing but would like to (units (unknown) date) do the quad screen testing unk nown) between 16 and 18 weeks. (unknown) (no (unknown) (unknown) tetanus and diphtheria (u nits (unknown) date) toxoids Allergy unknown) (Intermediate, Verified 10/17/21 13:36) (unknown) (no (unknown) (unknown) the center until she (units (unknown) date) is delivered. unknown) (unknown) (no (unknown) (unknown) to history of precipitous (units (unknown) date) deliveries, patient unknown) requests induction at 39+ 0 weeks (unknown) (no (unknown) (unknown) today and will be seen on (units (unknown) date) the center for NST, unkn own) labs, and probable (unknown) (no (unknown) (unknown) today. She has started to (units (unknown) date) feel the baby move more unknow n) actively but she denies any (unknown) (no (unknown) (unknown) tolerated. Unfortunately (units (unknown) date) she still having some unknown) issues with nausea and a refill (unknown) (no (unknown) (unknown) tramadol 50 mg tablet 100 (units (unknown) date) mg PO Q6H PRN #30 tab unknown) 08/27/21 [Rx Confirmed 10/17/21] (unknown) (no (unknown) (unknown) trimester. (units (unk nown) date) unknown) (unknown) (no (unknown) (unknown) ultrasound. Patient has (units (unknown) date) received 2 doses of unknown) steroids at the time of her (unknown) (no (unknown) (unknown) ural [place] 24 (units ( unknown) date) unknown) (unknown) (no (unknown) (unknown) vomiting less frequently. (units (unknown) date) She is however still unknown) requiring frequent doses of (unknown) (no (unknown) (unknown) was given boil notice/now (units (unknown) date) chlorine.) unknown) (unknown) (no (unknown) (unknown) well-balanced diet: rarely (units (unknown) date) or never (Hyperemesis, also un known) diet restrictions due to (unknown) (no (unknown) (unknown) which would be 10/04/2021. (units (unknown) date) Follow-up will be in 3 unknow n) weeks or as needed. (unknown) (no (unknown) (unknown) will be in 4 weeks or as (units (unknown) date) needed. unknown) (unknown) (no (unknown) (unknown) will be scheduled for next (units (unknown) date) Thursday. 1 hour GDM unknown ) screen and CBC ordered. Due (unknown) (no (unknown) (unknown) will contact patient with (units (unknown) date) results. Patient has noted unk nown) return of mild morning (unknown) (no (unknown) (unknown) will initiate Fioricet 1-2 (units (unknown) date) tabs every 4-6 hours as unknow n) needed for headaches. Size (unknown) (no (unknown) (unknown) with insurance, if so). ( units (unknown) date) unknown) (unknown) (no (unknown) (unknown) with oral medication. (un its (unknown) date) Patient will be scheduled unkn own) for a follow-up appointment in (unknown) (no (unknown) (unknown) work/environmental/hazards (units (unknown) date) , Sexual activity, X-ray unkno wn) exposure, Medication use, (unknown) (no (unknown) (unknown) written consent was (unit s (unknown) date) executed this date. unknown) (unknown) (no (unknown) (unknown) yesterday with blood (uni ts (unknown) date) pressures in the severe unknow n) range. Brief assessment in office Result panel 3 (unknown) (no date) (unknown) (unknown) Negative (units (unkn own) unknown) Result panel 4 (unknown) (no date) (unknown) (unknown) (no value) (units 226 37-3 unknown) (unknown) (no date) (unknown) (unknown) (no value) (units 495 60-6 unknown) (unknown) (no date) (unknown) (unknown) (no value) (units 191 39-5 unknown) (unknown) (no date) (unknown) (unknown) (no value) (units 226 34-0 unknown) (unknown) (no date) (unknown) (unknown) (no value) (units 226 33-2 unknown) (unknown) (no date) (unknown) (unknown) (no value) (units 527 97-8 unknown) Result panel 5 (unknown) (no (unknown) (unknown) (no value) (units (unk nown) date) unknown) (unknown) (no (unknown) (unknown) Date of (units (unkno wn) date) Service: unknown) 11/01/21 (unknown) (no (unknown) (unknown) [facility] (units (unknown) date) [address] unknown) [place] [address] (unknown) (no (unknown) (unknown) Pre-operative (units ( unknown) date) Note unknown) (unknown) (no (unknown) (unknown) (no value) (units (unk nown) date) unknown) (unknown) (no (unknown) (unknown) [id number] (units (unkno wn) date) unknown) (unknown) (no (unknown) (unknown) Age/Sex: 36 / F (units (unknown) date) unknown) (unknown) (no (unknown) (unknown) COVID-19 (units (unkno wn) date) unknown) (unknown) (no (unknown) (unknown) COVID-19 (units (unkno wn) date) status: Negative unknown) (unknown) (no (unknown) (unknown) Changes to H+P: (units (unknown) date) No unknown) (unknown) (no (unknown) (unknown) Criteria for (units (u nknown) date) continued unknown) procedure: Non-surgical alternatives not available or (unknown) (no (unknown) (unknown) : 1985 (units (unknown) date) unknown) Acct:[id number] (unknown) (no (unknown) (unknown) History + (units (unkn own) date) Physical unknown) reviewed/Exam performed by Physician: Yes (unknown) (no (unknown) (unknown) Interval Note (units ( unknown) date) unknown) (unknown) (no (unknown) (unknown) Patient: (units (unkno wn) date) Nova Gonzales unknown) MR#: [id number] (unknown) (no (unknown) (unknown) Pre-operative (units ( unknown) date) Note unknown) (unknown) (no (unknown) (unknown) Provider: (units (unkn own) date) Javier Bishop unknown) (unknown) (no (unknown) (unknown) Result (units (unkno wn) date) date/Date tested unknown) (Pos, Neg/Pending): 10/31/21 (unknown) (no (unknown) (unknown) Signed (units (unkno wn) date) By:<Electronical unknown) ly signed by Javier Bishop MD>11/01/21 0915 (unknown) (no (unknown) (unknown) appropriate per (units (unknown) date) current SOC unknown) Result panel 6 (unknown) (no (unknown) (unknown) abnormality. (units (u nknown) date) unknown) (unknown) (no (unknown) (unknown) Two fimbriated (units (unknown) date) fallopian tubes unknown) without significant pathologic (unknown) (no (unknown) (unknown) [address] [place] [address] (units (unknown) date) [facility] [address], unknown) [place], [place] [id number] (unknown) (no (unknown) (unknown) [facility] (units (unknown) date) [place] [facility] unknown) (unknown) (no (unknown) (unknown) MD Bernard (units (unkn own) date) Lela SUAREZ Phone: unknown) [phone] (unknown) (no (unknown) (unknown) (no value) (units (unk nown) date) unknown) (unknown) (no (unknown) (unknown) [address] [place] [address] (units (unknown) date) unknown) (unknown) (no (unknown) (unknown) [place], [place] (units ( unknown) date) [address] unknown) (unknown) (no (unknown) (unknown) [facility] (units (unknown) date) unknown) (unknown) (no (unknown) (unknown) Pathology (units (unkn own) date) Diagnostic Report unknown) (unknown) (no (unknown) (unknown) Signed (units (unkno wn) date) unknown) (unknown) (no (unknown) (unknown) (no value) (units (unk nown) date) unknown) (unknown) (no (unknown) (unknown) 'bilateral (units (unk nown) date) fallopian tubes', unknown) are three undesignated fallopian tube (unknown) (no (unknown) (unknown) (units (unknown) date) unknown) (unknown) (no (unknown) (unknown) Performed at: (units (unknown) date) 01 unknown) (unknown) (no (unknown) (unknown) . 01 (units (unkno wn) date) unknown) (unknown) (no (unknown) (unknown) /FRR 11/02/2021 (units (unknown) date) 2046 Local unknown) (unknown) (no (unknown) (unknown) 0.6 cm in (units (unkn own) date) diameter with a unknown) vaca-purple outer surface and attached open (unknown) (no (unknown) (unknown) [id number], [id number] (units (unknown) date) unknown) (unknown) (no (unknown) (unknown) A1: (units (unkno wn) date) [employer] unknown) first fallopian tube with entire bisected fimbriae. 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 (units (unkno wn) date) unknown) (unknown) (no (unknown) (unknown) Diagnosis: (units (unk nown) date) unknown) (unknown) (no (unknown) (unknown) Electronically (units (unknown) date) signed: . unknown) (unknown) (no (unknown) (unknown) Fallopian Tubes, (units (unknown) date) Bilateral unknown) Salpingectomy: (unknown) (no (unknown) (unknown) Gross (units (o wn) date) description: . unknown) (unknown) (no (unknown) (unknown) [facility] Accession (units ( unknown) date) Number: unknown) [id number] (unknown) (no (unknown) (unknown) MRV 11/05/2021 (units (unknown) date) 1654 Local unknown) (unknown) (no (unknown) (unknown) Material (units (unkno wn) date) submitted: . unknown) (unknown) (no (unknown) (unknown) NPI- [id number] (units (unknown) date) unknown) (unknown) (no (unknown) (unknown) Pathologist (units (un known) date) provided ICD-10: unknown) (unknown) (no (unknown) (unknown) Hawa (units (unkno wn) date) MD Reyna, unknown) Pathologist (unknown) (no (unknown) (unknown) Received in (units (un known) date) formalin, labeled unknown) with the patient's name and designated (unknown) (no (unknown) (unknown) Specimen (units (unkno wn) date) Comment: A unknown) courtesy copy of this report has been sent to [phone] (unknown) (no (unknown) (unknown) Z30.2 (units (unkno wn) date) unknown) (unknown) (no (unknown) (unknown) diameter with a (units (unknown) date) purple-vaca, unknown) focally clamped outer surface and attached (unknown) (no (unknown) (unknown) fallopian tube - (units (unknown) date) BILATERAL unknown) FALLOPIAN TUBES (unknown) (no (unknown) (unknown) fimbriae. The (units ( unknown) date) second segment is unknown) disrupted, 3.0 cm long by 0.7 cm in (unknown) (no (unknown) (unknown) in diameter, (units (u nknown) date) with a unknown) purple-vaca, unremarkable cut surface. No additional (unknown) (no (unknown) (unknown) lesions are (units (un known) date) identified. unknown) [employer] Dealer sections are submitted as follows: (unknown) (no (unknown) (unknown) open fimbriae. (units (unknown) date) The third segment unknown) is non-fimbriated, 3.5 cm long by 0.4 cm (unknown) (no (unknown) (unknown) senior customer service representative (units (unknown) date) non-fimbriated unknown) segment (inked blue). (KRISTIE:[id number]) (unknown) (no (unknown) (unknown) segments, two of (units (unknown) date) which are unknown) fimbriated. The first segment is 6.0 cm long by (unknown) (no (unknown) (unknown) Collection Date: (units (unknown) date) 11/01/21 unknown) (unknown) (no (unknown) (unknown) DD/ (units (unknown) date) 0000 unknown) (unknown) (no (unknown) (unknown) Date of : (units (unknown) date) 1985 unknown) Admit Date: 11/01/21 (unknown) (no (unknown) (unknown) Dictated By: (units (u nknown) date) Shelia Orellaan unknown) suri SUAREZ (unknown) (no (unknown) (unknown) (units (unknown) date) Dictating Dr: unknown) Hawa Orellana MD (unknown) (no (unknown) (unknown) Ordering (units (unkno wn) date) Physician: unknown) Javier Bishop MD (unknown) (no (unknown) (unknown) Patient name: (units ( unknown) date) JanetNova F unknown) (unknown) (no (unknown) (unknown) Signed By: (units (unk nown) date) 11/05/212105 unknown) (unknown) (no (unknown) (unknown) TD/TT: 11/05/21 (units (unknown) date) 2105 unknown) Result panel 7 (unknown) (no (unknown) (unknown) (no value) (units (unk nown) date) unknown) (unknown) (no (unknown) (unknown) Date of Service: (units (unknown) date) 11/01/21 unknown) (unknown) (no (unknown) (unknown) [facility] (units (unknown) date) [address] unknown) [place] [address] (unknown) (no (unknown) (unknown) Operation Date: (units (unknown) date) 11/01/21 09:15 unknown) (unknown) (no (unknown) (unknown) Operative Note (units (unknown) date) unknown) (unknown) (no (unknown) (unknown) Procedures (units (unk nown) date) unknown) (unknown) (no (unknown) (unknown) (no value) (units (unk nown) date) unknown) (unknown) (no (unknown) (unknown) [id number] (units (unkno wn) date) unknown) (unknown) (no (unknown) (unknown) Actual Procedure (units (unknown) date) Side Surgeon unknown) (unknown) (no (unknown) (unknown) Age/Sex: 36 / F (units (unknown) date) unknown) (unknown) (no (unknown) (unknown) : 1985 (units (unknown) date) Acct:[id number] unknown) (unknown) (no (unknown) (unknown) Date of (units (unkno wn) date) procedure: unknown) 11/01/21 (unknown) (no (unknown) (unknown) Operative (units (unkn own) date) Date/Time/Diagnos unknown) es (unknown) (no (unknown) (unknown) Patient: (units (unkno wn) date) Nova Gonzales unknown) MR#: [id number] (unknown) (no (unknown) (unknown) Post-op (units (unkno wn) date) diagnosis: same unknown) (unknown) (no (unknown) (unknown) Pre-op (units (unkno wn) date) diagnosis: unknown) Request for sterilization (unknown) (no (unknown) (unknown) Procedure + (units (un known) date) Clinicians unknown) (unknown) (no (unknown) (unknown) Procedure: (units (unk nown) date) unknown) (unknown) (no (unknown) (unknown) Provider: (units (unkn own) date) Javier Bishop unknown) (unknown) (no (unknown) (unknown) Signed By: (units (unk nown) date) unknown) (unknown) (no (unknown) (unknown) Time of (units (unkno wn) date) procedure: 09:45 unknown) (unknown) (no (unknown) (unknown) p Laparoscopic (units (unknown) date) Salpingectomy unknown) Bilateral Javier Bishop MD Result panel 8 (unknown) (no (unknown) (unknown) (no value) (units (unk nown) date) unknown) (unknown) (no (unknown) (unknown) Date of Service: (units (unknown) date) 11/01/21 unknown) (unknown) (no (unknown) (unknown) [facility] (units (unknown) date) [address] unknown) [place] [address] (unknown) (no (unknown) (unknown) Operation Date: (units (unknown) date) 11/01/21 09:15 unknown) (unknown) (no (unknown) (unknown) Operative Note (units (unknown) date) unknown) (unknown) (no (unknown) (unknown) Procedures (units (unk nown) date) unknown) (unknown) (no (unknown) (unknown) (no value) (units (unk nown) date) unknown) (unknown) (no (unknown) (unknown) [id number] (units (unkno wn) date) unknown) (unknown) (no (unknown) (unknown) 3rd 5 mm (units (unkno wn) date) laparoscopic trocar unknown) and sleeve were introduced in the right and left (unknown) (no (unknown) (unknown) 5 mm laparoscopic (units (unknown) date) trocar and sleeve unknown) were placed through the umbilical incision. (unknown) (no (unknown) (unknown) Actual Procedure (units (unknown) date) Side Surgeon unknown) (unknown) (no (unknown) (unknown) Age/Sex: 36 / F (units (unknown) date) unknown) (unknown) (no (unknown) (unknown) Anesthesia Type: (units (unknown) date) General unknown) (unknown) (no (unknown) (unknown) Blood products (units (unknown) date) transfused: none unknown) (unknown) (no (unknown) (unknown) Closure Type: (units ( unknown) date) primary unknown) (unknown) (no (unknown) (unknown) Complications: (units (unknown) date) none unknown) (unknown) (no (unknown) (unknown) Condition: stable (units (unknown) date) unknown) (unknown) (no (unknown) (unknown) : 1985 (units (unknown) date) Acct:[id number] unknown) (unknown) (no (unknown) (unknown) Date of procedure: (units (unknown) date) 11/01/21 unknown) (unknown) (no (unknown) (unknown) Disposition: PACU (units (unknown) date) unknown) (unknown) (no (unknown) (unknown) Nova is a 36 yo (units (unknown) date) s/p 7 unknown) weeks ago admitted for elective sterilization at (unknown) (no (unknown) (unknown) Estimated blood (units (unknown) date) loss (mL): 5 unknown) (unknown) (no (unknown) (unknown) Findings: (units (unkn own) date) unknown) (unknown) (no (unknown) (unknown) Indications: (units (u nknown) date) unknown) (unknown) (no (unknown) (unknown) Normal pelvis and (units (unknown) date) abdominal cavity to unknown) laparoscopic inspection. (unknown) (no (unknown) (unknown) Operative (units (unkn own) date) Date/Time/Diagnoses unknown) (unknown) (no (unknown) (unknown) Operative Notes (units (unknown) date) unknown) (unknown) (no (unknown) (unknown) Patient: (units (unkno wn) date) Nova Gonzales unknown) MR#: [id number] (unknown) (no (unknown) (unknown) Plan for (units (unkno wn) date) aftercare: unknown) (unknown) (no (unknown) (unknown) Post-op diagnosis: (units (unknown) date) same unknown) (unknown) (no (unknown) (unknown) Post-operative (units (unknown) date) unknown) (unknown) (no (unknown) (unknown) Pre-op diagnosis: (units (unknown) date) Request for unknown) sterilization (unknown) (no (unknown) (unknown) Procedure + (units (un known) date) Clinicians unknown) (unknown) (no (unknown) (unknown) Procedure in (units (u nknown) date) detail: unknown) (unknown) (no (unknown) (unknown) Procedure: (units (unk nown) date) unknown) (unknown) (no (unknown) (unknown) Proper placement of (units (unknown) date) the sleeve was unknown) confirmed with the laparoscoped and a 2nd and (unknown) (no (unknown) (unknown) Provider: (units (unkn own) date) Javier Bishop MD unknown) (unknown) (no (unknown) (unknown) Routine postop (units (unknown) date) care with postop unknown) follow-up scheduled for 2 weeks following (unknown) (no (unknown) (unknown) Signed By: (units (unk nown) date) unknown) (unknown) (no (unknown) (unknown) Skin glue was (units ( unknown) date) applied followed by unknown) appropriate dressings, the patient was (unknown) (no (unknown) (unknown) Specimen(s): left (units (unknown) date) tube and right tube unknown) (unknown) (no (unknown) (unknown) Surgeon: Javier Garcia (units (unknown) date) Dario unknown) (unknown) (no (unknown) (unknown) Time of procedure: (units (unknown) date) 09:45 unknown) (unknown) (no (unknown) (unknown) With the patient (units (unknown) date) under satisfactory unknown) general LMA in the modified dorsal lithotomy (unknown) (no (unknown) (unknown) abdominal cavity (units (unknown) date) through 1 of the 5 unknown) mm ports. The pelvis was carefully (unknown) (no (unknown) (unknown) awakened, and then (units (unknown) date) transferred to the unknown) PACU for a period of observation and (unknown) (no (unknown) (unknown) been counseled on (units (unknown) date) several occasions unknown) that this is a permanent and irreversible (unknown) (no (unknown) (unknown) benefit of (units (unk nown) date) assisted unknown) reproductive technology. With full knowledge and (unknown) (no (unknown) (unknown) distal right (units (un known) date) fallopian tube was unknown) grasped and elevated so as to be able to use the (unknown) (no (unknown) (unknown) fallopian tube was (units (unknown) date) coagulated and unknown) divided as well. The specimen was removed (unknown) (no (unknown) (unknown) her request by (units ( unknown) date) laparoscopic unknown) bilateral salpingectomy. Patient preoperatively has (unknown) (no (unknown) (unknown) infiltrated with (units (unknown) date) 0.5% Marcaine with unknown) epinephrine and a 5 mm vertical incision was (unknown) (no (unknown) (unknown) inspected and (units ( unknown) date) there was no areas unknown) of bleeding or other abnormality seen. That (unknown) (no (unknown) (unknown) insufflate the (units ( unknown) date) abdomen with carbon unknown) dioxide and once appropriately insufflated, a (unknown) (no (unknown) (unknown) it had been on the (units (unknown) date) right. The excised unknown) fallopian tube was removed from the (unknown) (no (unknown) (unknown) laparoscopic (units (u nknown) date) bilateral unknown) salpingectomy. A pre-surgical safety time-out was then (unknown) (no (unknown) (unknown) made in the lower (units (unknown) date) portion of the unknown) umbilicus. A Veress needle was used to (unknown) (no (unknown) (unknown) mid quadrants (units ( unknown) date) using a similar unknown) technique. Using a 3 puncture technique the (unknown) (no (unknown) (unknown) p Laparoscopic (units (unknown) date) Salpingectomy unknown) Bilateral Javier Bishop MD (unknown) (no (unknown) (unknown) pelvis and abdomen (units (unknown) date) were visualized unknown) with the findings as noted previously. The (unknown) (no (unknown) (unknown) point the (units (unkno wn) date) pneumoperitoneum unknown) was vented, the laparoscopic sleeves removed, and the (unknown) (no (unknown) (unknown) position, the (units ( unknown) date) perineum, vagina, unknown) and abdomen were prepped and draped for (unknown) (no (unknown) (unknown) power seal and (units (unknown) date) that dissection unknown) carried across the mesosalpinx to the cornua as (unknown) (no (unknown) (unknown) power seal bipolar (units (unknown) date) device to coagulate unknown) and divide the fimbrial very cuff from (unknown) (no (unknown) (unknown) procedure her which (units (unknown) date) will result in her unknown) being unable to bear children without the (unknown) (no (unknown) (unknown) recovery having (units (unknown) date) tolerated the unknown) procedure well. (unknown) (no (unknown) (unknown) salpingectomy at (units (unknown) date) this time. unknown) (unknown) (no (unknown) (unknown) skin incisions (units (unknown) date) closed with 4-0 unknown) Monocryl using inverted interrupted stitches. (unknown) (no (unknown) (unknown) surgery. (units (unkno wn) date) unknown) (unknown) (no (unknown) (unknown) taken in (units (unkno wn) date) accordance with unknown) [facility] Main OR protocols. The umbilicus was (unknown) (no (unknown) (unknown) the distal tube (units (unknown) date) elevated, the unknown) fimbria varicose coagulated and divided with the (unknown) (no (unknown) (unknown) the ovary, the (units (unknown) date) mesosalpinx across unknown) to the cornua and the cornual portion of the (unknown) (no (unknown) (unknown) through 1 of the 5 (units (unknown) date) mm ports. unknown) Attention was then turned to the left side with (unknown) (no (unknown) (unknown) understanding of (units (unknown) date) the above we are unknown) proceeding with laparoscopic bilateral Result panel 9 (unknown) (no (unknown) (unknown) (no value) (units (unk nown) date) unknown) (unknown) (no (unknown) (unknown) Date of Service: (units (unknown) date) 11/01/21 unknown) (unknown) (no (unknown) (unknown) [facility] (units (unknown) date) [address]) [place] [address] (unknown) (no (unknown) (unknown) Operation Date: (units (unknown) date) 11/01/21 09:15 unknown) (unknown) (no (unknown) (unknown) Operative Note (units (unknown) date) unknown) (unknown) (no (unknown) (unknown) Procedures (units (unk nown) date) unknown) (unknown) (no (unknown) (unknown) (no value) (units (unk nown) date) unknown) (unknown) (no (unknown) (unknown) [id number] (units (unkno wn) date) unknown) (unknown) (no (unknown) (unknown) 3rd 5 mm (units (unkno wn) date) laparoscopic trocar unknown) and sleeve were introduced in the right and left (unknown) (no (unknown) (unknown) 5 mm laparoscopic (units (unknown) date) trocar and sleeve unknown) were placed through the umbilical incision. (unknown) (no (unknown) (unknown) Actual Procedure (units (unknown) date) Side Surgeon unknown) (unknown) (no (unknown) (unknown) Age/Sex: 36 / F (units (unknown) date) unknown) (unknown) (no (unknown) (unknown) Anesthesia Type: (units (unknown) date) General unknown) (unknown) (no (unknown) (unknown) Blood products (units (unknown) date) transfused: none unknown) (unknown) (no (unknown) (unknown) Closure Type: (units ( unknown) date) primary unknown) (unknown) (no (unknown) (unknown) Complications: (units (unknown) date) none unknown) (unknown) (no (unknown) (unknown) Condition: stable (units (unknown) date) unknown) (unknown) (no (unknown) (unknown) : 1985 (units (unknown) date) Acct:[id number] unknown) (unknown) (no (unknown) (unknown) Date of procedure: (units (unknown) date) 11/01/21 unknown) (unknown) (no (unknown) (unknown) Disposition: PACU (units (unknown) date) unknown) (unknown) (no (unknown) (unknown) Nova is a 36 yo (units (unknown) date) s/p 7 unknown) weeks ago admitted for elective sterilization at (unknown) (no (unknown) (unknown) Estimated blood (units (unknown) date) loss (mL): 5 unknown) (unknown) (no (unknown) (unknown) Findings: (units (unkn own) date) unknown) (unknown) (no (unknown) (unknown) Indications: (units (u nknown) date) unknown) (unknown) (no (unknown) (unknown) Normal pelvis and (units (unknown) date) abdominal cavity to unknown) laparoscopic inspection. (unknown) (no (unknown) (unknown) Operative (units (unkn own) date) Date/Time/Diagnoses unknown) (unknown) (no (unknown) (unknown) Operative Notes (units (unknown) date) unknown) (unknown) (no (unknown) (unknown) Patient: (units (unkno wn) date) Nova Gonzales unknown) MR#: [id number] (unknown) (no (unknown) (unknown) Plan for (units (unkno wn) date) aftercare: unknown) (unknown) (no (unknown) (unknown) Post-op diagnosis: (units (unknown) date) same unknown) (unknown) (no (unknown) (unknown) Post-operative (units (unknown) date) unknown) (unknown) (no (unknown) (unknown) Pre-op diagnosis: (units (unknown) date) Request for unknown) sterilization (unknown) (no (unknown) (unknown) Procedure + (units (un known) date) Clinicians unknown) (unknown) (no (unknown) (unknown) Procedure in (units (u nknown) date) detail: unknown) (unknown) (no (unknown) (unknown) Procedure: (units (unk nown) date) unknown) (unknown) (no (unknown) (unknown) Proper placement of (units (unknown) date) the sleeve was unknown) confirmed with the laparoscoped and a 2nd and (unknown) (no (unknown) (unknown) Provider: (units (unkn own) date) Javier Bishop MD unknown) (unknown) (no (unknown) (unknown) Routine postop (units (unknown) date) care with postop unknown) follow-up scheduled for 2 weeks following (unknown) (no (unknown) (unknown) Signed (units (unkno wn) date) By:<Electronically unknown) signed by Javier Bishop MD>11/01/21 1046 (unknown) (no (unknown) (unknown) Skin glue was (units ( unknown) date) applied followed by unknown) appropriate dressings, the patient was (unknown) (no (unknown) (unknown) Specimen(s): left (units (unknown) date) tube and right tube unknown) (unknown) (no (unknown) (unknown) Surgeon: Javier Garcia (units (unknown) date) Dario unknown) (unknown) (no (unknown) (unknown) Time of procedure: (units (unknown) date) 09:45 unknown) (unknown) (no (unknown) (unknown) With the patient (units (unknown) date) under satisfactory unknown) general LMA in the modified dorsal lithotomy (unknown) (no (unknown) (unknown) abdominal cavity (units (unknown) date) through 1 of the 5 unknown) mm ports. The pelvis was carefully (unknown) (no (unknown) (unknown) awakened, and then (units (unknown) date) transferred to the unknown) PACU for a period of observation and (unknown) (no (unknown) (unknown) been counseled on (units (unknown) date) several occasions unknown) that this is a permanent and irreversible (unknown) (no (unknown) (unknown) benefit of (units (unk nown) date) assisted unknown) reproductive technology. With full knowledge and (unknown) (no (unknown) (unknown) distal right (units (un known) date) fallopian tube was unknown) grasped and elevated so as to be able to use the (unknown) (no (unknown) (unknown) fallopian tube was (units (unknown) date) coagulated and unknown) divided as well. The specimen was removed (unknown) (no (unknown) (unknown) her request by (units ( unknown) date) laparoscopic unknown) bilateral salpingectomy. Patient preoperatively has (unknown) (no (unknown) (unknown) infiltrated with (units (unknown) date) 0.5% Marcaine with unknown) epinephrine and a 5 mm vertical incision was (unknown) (no (unknown) (unknown) inspected and (units ( unknown) date) there was no areas unknown) of bleeding or other abnormality seen. That (unknown) (no (unknown) (unknown) insufflate the (units ( unknown) date) abdomen with carbon unknown) dioxide and once appropriately insufflated, a (unknown) (no (unknown) (unknown) it had been on the (units (unknown) date) right. The excised unknown) fallopian tube was removed from the (unknown) (no (unknown) (unknown) laparoscopic (units (u nknown) date) bilateral unknown) salpingectomy. A pre-surgical safety time-out was then (unknown) (no (unknown) (unknown) made in the lower (units (unknown) date) portion of the unknown) umbilicus. A Veress needle was used to (unknown) (no (unknown) (unknown) mid quadrants (units ( unknown) date) using a similar unknown) technique. Using a 3 puncture technique the (unknown) (no (unknown) (unknown) p Laparoscopic (units (unknown) date) Salpingectomy unknown) Bilateral Javier Bishop MD (unknown) (no (unknown) (unknown) pelvis and abdomen (units (unknown) date) were visualized unknown) with the findings as noted previously. The (unknown) (no (unknown) (unknown) point the (units (unkno wn) date) pneumoperitoneum unknown) was vented, the laparoscopic sleeves removed, and the (unknown) (no (unknown) (unknown) position, the (units ( unknown) date) perineum, vagina, unknown) and abdomen were prepped and draped for (unknown) (no (unknown) (unknown) power seal and (units (unknown) date) that dissection unknown) carried across the mesosalpinx to the cornua as (unknown) (no (unknown) (unknown) power seal bipolar (units (unknown) date) device to coagulate unknown) and divide the fimbrial very cuff from (unknown) (no (unknown) (unknown) procedure her which (units (unknown) date) will result in her unknown) being unable to bear children without the (unknown) (no (unknown) (unknown) recovery having (units (unknown) date) tolerated the unknown) procedure well. (unknown) (no (unknown) (unknown) salpingectomy at (units (unknown) date) this time. unknown) (unknown) (no (unknown) (unknown) skin incisions (units (unknown) date) closed with 4-0 unknown) Monocryl using inverted interrupted stitches. (unknown) (no (unknown) (unknown) surgery. (units (unkno wn) date) unknown) (unknown) (no (unknown) (unknown) taken in (units (o wn) date) accordance with unknown) [facility] Main OR protocols. The umbilicus was (unknown) (no (unknown) (unknown) the distal tube (units (unknown) date) elevated, the unknown) fimbria varicose coagulated and divided with the (unknown) (no (unknown) (unknown) the ovary, the (units (unknown) date) mesosalpinx across unknown) to the cornua and the cornual portion of the (unknown) (no (unknown) (unknown) through 1 of the 5 (units (unknown) date) mm ports. unknown) Attention was then turned to the left side with (unknown) (no (unknown) (unknown) understanding of (units (unknown) date) the above we are unknown) proceeding with laparoscopic bilateral Result panel 10 (unknown) (no (unknown) (unknown) (no value) (units (unk nown) date) unknown) (unknown) (no (unknown) (unknown) [place] [id number] (unit s (unknown) date) unknown) (unknown) (no (unknown) (unknown) COPD (chronic obstructive (units (unknown) date) pulmonary disease) unknown) (unknown) (no (unknown) (unknown) Cancer (units (unkno wn) date) unknown) (unknown) (no (unknown) (unknown) Diabetes mellitus (units (unknown) date) unknown) (unknown) (no (unknown) (unknown) Difficulty Breathing (uni ts (unknown) date) unknown) (unknown) (no (unknown) (unknown) Draft (units (unkno wn) date) unknown) (unknown) (no (unknown) (unknown) [facility] (units (unknown) date) unknown) (unknown) (no (unknown) (unknown) Gynecology Visit (units (unknown) date) unknown) (unknown) (no (unknown) (unknown) H/O bilateral hip (units (unknown) date) replacements unknown) (unknown) (no (unknown) (unknown) H/O thyroidectomy (units (unknown) date) unknown) (unknown) (no (unknown) (unknown) History of heart disease (units (unknown) date) unknown) (unknown) (no (unknown) (unknown) Hives (units (unkno wn) date) unknown) (unknown) (no (unknown) (unknown) Hypertension (units (u nknown) date) unknown) (unknown) (no (unknown) (unknown) Hypothyroid (units (un known) date) unknown) (unknown) (no (unknown) (unknown) Mental health problem (un its (unknown) date) unknown) (unknown) (no (unknown) (unknown) Myocardial infarction (un its (unknown) date) unknown) (unknown) (no (unknown) (unknown) Nausea (units (unkno wn) date) unknown) (unknown) (no (unknown) (unknown) Smoker (units (unkno wn) date) unknown) (unknown) (no (unknown) (unknown) Stroke (units (unkno wn) date) unknown) (unknown) (no (unknown) (unknown) THROAT SWELLING, HIVES (u nits (unknown) date) unknown) (unknown) (no (unknown) (unknown) (no value) (units (unk nown) date) unknown) (unknown) (no (unknown) (unknown) [id number] (units (unkno wn) date) unknown) (unknown) (no (unknown) (unknown) 11/26/21 (units (unkno wn) date) unknown) (unknown) (no (unknown) (unknown) Abnormal ultrasound of (u nits (unknown) date) abdomen () unknown) (unknown) (no (unknown) (unknown) Acne () (units (u nknown) date) unknown) (unknown) (no (unknown) (unknown) Acute cholecystitis (unit s (unknown) date) without calculus () un known) (unknown) (no (unknown) (unknown) Age/Sex: 36 / F Date of (units (unknown) date) Service: unknown) (unknown) (no (unknown) (unknown) Allergies (units (unkn own) date) unknown) (unknown) (no (unknown) (unknown) Anesthesia (units (unk nown) date) unknown) (unknown) (no (unknown) (unknown) Attending Dr: Javier Garcia (u nits (unknown) date) Dario SUAREZ unknown) (unknown) (no (unknown) (unknown) COVID-19 affecting (units (unknown) date) , antepartum unknown) (unknown) (no (unknown) (unknown) : 1985 (units (unknown) date) Acct:[id number] unknown) (unknown) (no (unknown) (unknown) Depression (-2010) (units (unknown) date) unknown) (unknown) (no (unknown) (unknown) Dept at . (u nits (unknown) date) unknown) (unknown) (no (unknown) (unknown) Diet and Exercise (units (unknown) date) unknown) (unknown) (no (unknown) (unknown) Dietary counseling and (u nits (unknown) date) surveillance unknown) (unknown) (no (unknown) (unknown) Documented By: (units (unknown) date) Javier Bishop MD unknown) 11/26/21 1331 (unknown) (no (unknown) (unknown) Ectopic (units (unknown) date) (-06/06/20) unknown) (unknown) (no (unknown) (unknown) Family History (Reviewed (units (unknown) date) 08/30/21 @ 14:55 by Javier malone nowelicia) Jose Bishop MD) (unknown) (no (unknown) (unknown) Father Depression (unit s (unknown) date) unknown) (unknown) (no (unknown) (unknown) Grandfather (u nits (unknown) date) Alzheimer disease unknown) (unknown) (no (unknown) (unknown) Grandfather (u nits (unknown) date) Myocardial infarction unknown) (unknown) (no (unknown) (unknown) Grandmother (u nits (unknown) date) Lung cancer metastatic to unkn own) brain (unknown) (no (unknown) (unknown) Grandmother (units (un known) date) Diverticulitis unknown) (unknown) (no (unknown) (unknown) H/O colonoscopy () ( units (unknown) date) unknown) (unknown) (no (unknown) (unknown) H/O dilation and curettage (units (unknown) date) unknown) (unknown) (no (unknown) (unknown) Hearing loss () (uni ts (unknown) date) unknown) (unknown) (no (unknown) (unknown) Hemorrhoid () (units (unknown) date) unknown) (unknown) (no (unknown) (unknown) History of UTI () (u nits (unknown) date) unknown) (unknown) (no (unknown) (unknown) History of (units (unk nown) date) esophagogastroduodenoscopy unk nown) (EGD) () (unknown) (no (unknown) (unknown) Hyperemesis gravidarum (u nits (unknown) date) () unknown) (unknown) (no (unknown) (unknown) Intake (units (unkno wn) date) unknown) (unknown) (no (unknown) (unknown) Intake Note: (units (u nknown) date) unknown) (unknown) (no (unknown) (unknown) Intake performed by: (uni ts (unknown) date) Petra Lind unknown) (unknown) (no (unknown) (unknown) Intake- Clincial Staff (u nits (unknown) date) unknown) (unknown) (no (unknown) (unknown) Loc: [facility] (units (unkno wn) date) unknown) (unknown) (no (unknown) (unknown) Low back pain () (units (unknown) date) unknown) (unknown) (no (unknown) (unknown) MRSA (methicillin (units (unknown) date) resistant Staphylococcus unkno wn) aureus) () (unknown) (no (unknown) (unknown) Medical History (Updated (units (unknown) date) 11/01/21 @ 08:35 by unknown) Ravin Power RN) (unknown) (no (unknown) (unknown) Migraines () (units (unknown) date) unknown) (unknown) (no (unknown) (unknown) Mother Brain tumor (uni ts (unknown) date) (benign) unknown) (unknown) (no (unknown) (unknown) PFSH (units (unkno wn) date) unknown) (unknown) (no (unknown) (unknown) Painful menstrual periods (units (unknown) date) unknown) (unknown) (no (unknown) (unknown) Patient: Nova Gonzales (units (unknown) date) MR#: [id number] unknown) (unknown) (no (unknown) (unknown) depression (un its (unknown) date) associated with second unknown ) (unknown) (no (unknown) (unknown) Pt here for PO visit (uni ts (unknown) date) following tubal ligation on un known) 11/01 (unknown) (no (unknown) (unknown) Reason For Visit (units (unknown) date) unknown) (unknown) (no (unknown) (unknown) Recurrent urinary tract ( units (unknown) date) infection (12/10/15) unknown) (unknown) (no (unknown) (unknown) Rib pain on left side (un its (unknown) date) () unknown) (unknown) (no (unknown) (unknown) Right flank pain () (units (unknown) date) unknown) (unknown) (no (unknown) (unknown) Safety (units (unkno wn) date) unknown) (unknown) (no (unknown) (unknown) Sepsis () (units (unknown) date) unknown) (unknown) (no (unknown) (unknown) Signed By: (units (unk nown) date) unknown) (unknown) (no (unknown) (unknown) Smoking Status: Never (un its (unknown) date) smoker unknown) (unknown) (no (unknown) (unknown) Social History (units (unknown) date) unknown) (unknown) (no (unknown) (unknown) Spasm of left piriformis (units (unknown) date) muscle () unknown) (unknown) (no (unknown) (unknown) Status post laparoscopic (units (unknown) date) cholecystectomy (03/01/20) un known) (unknown) (no (unknown) (unknown) Surgical History (Updated (units (unknown) date) 11/01/21 @ 08:35 by unknown) Ravin Power RN) (unknown) (no (unknown) (unknown) This note may have been ( units (unknown) date) all or partially generated unk nown) using voice recognition (unknown) (no (unknown) (unknown) Tobacco + Substance Use ( units (unknown) date) unknown) (unknown) (no (unknown) (unknown) Tobacco Status (units (unknown) date) unknown) (unknown) (no (unknown) (unknown) Type(s) of exercise: (uni ts (unknown) date) walking and normal ROM and unk nown) activity ([phone] steps/day (unknown) (no (unknown) (unknown) Vaginal delivery (units (unknown) date) unknown) (unknown) (no (unknown) (unknown) Vaginal yeast infection ( units (unknown) date) () unknown) (unknown) (no (unknown) (unknown) Visit Reasons: PO - tbl (units (unknown) date) 11/01 unknown) (unknown) (no (unknown) (unknown) alcohol intake: former (u nits (unknown) date) unknown) (unknown) (no (unknown) (unknown) caffeine: No (units (u nknown) date) unknown) (unknown) (no (unknown) (unknown) caregiver/support person: (units (unknown) date) No unknown) (unknown) (no (unknown) (unknown) codeine Adverse Reaction (units (unknown) date) (Intermediate, Verified unknow n) 11/01/21 10:40) (unknown) (no (unknown) (unknown) current occupational (uni ts (unknown) date) exposures/hazards: Yes unknown ) (Home septic leak into well water; (unknown) (no (unknown) (unknown) daily servings fruits/veg: (units (unknown) date) 0-1 unknown) (unknown) (no (unknown) (unknown) do you feel safe at home: (units (unknown) date) Yes unknown) (unknown) (no (unknown) (unknown) during the past year (uni ts (unknown) date) weight has: remained stable un known) (unknown) (no (unknown) (unknown) education level: master's (units (unknown) date) degree (in 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 ) (unknown) (no (unknown) (unknown) gallbladder removal. Would (units (unknown) date) like referral to unknown) nutionist.) (unknown) (no (unknown) (unknown) have occurred. If there (units (unknown) date) are any questions, please unkn own) contact the Medical Records (unknown) (no (unknown) (unknown) household members: (units (unknown) date) significant other and unknown) children (unknown) (no (unknown) (unknown) housing: other (units (unknown) date) (Double-wide trailer.) unknown ) (unknown) (no (unknown) (unknown) hydrocodone [From Vicodin] (units (unknown) date) Allergy (Intermediate, unknown ) Verified 11/01/21 10:40) (unknown) (no (unknown) (unknown) lives independently: Yes (units (unknown) date) unknown) (unknown) (no (unknown) (unknown) marital status: (units (unknown) date) unmarried,living together unkn own) (unknown) (no (unknown) (unknown) may occur. 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 ) (unknown) (no (unknown) (unknown) occurred due to the (unit s (unknown) date) inherent limitations of unknow n) voice recognition software. Please (unknown) (no (unknown) (unknown) pets and animals: Yes (1 (units (unknown) date) cat, dog, bird, rabbit, unknow n) snake: aware of cat (unknown) (no (unknown) (unknown) precautions. ) (units (unknown) date) unknown) (unknown) (no (unknown) (unknown) read the note carefully ( units (unknown) date) and recognize, using unknown) context, where these substitutions (unknown) (no (unknown) (unknown) seatbelt use: always (uni ts (unknown) date) unknown) (unknown) (no (unknown) (unknown) second hand exposure: No (units (unknown) date) unknown) (unknown) (no (unknown) (unknown) software. 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 (unknown) (no (unknown) (unknown) special arin needs: No ( units (unknown) date) unknown) (unknown) (no (unknown) (unknown) substance use type: does (units (unknown) date) not use unknown) (unknown) (no (unknown) (unknown) tetanus and diphtheria (u nits (unknown) date) toxoids Allergy unknown) (Intermediate, Verified 11/01/21 10:40) (unknown) (no (unknown) (unknown) was given boil notice/now (units (unknown) date) chlorine.) unknown) (unknown) (no (unknown) (unknown) well-balanced diet: rarely (units (unknown) date) or never (Hyperemesis, also un known) diet restrictions due to Result panel 11 (unknown) (no (unknown) (unknown) (no value) (units (unk nown) date) unknown) (unknown) (no (unknown) (unknown) (no value) (units (unk nown) date) unknown) (unknown) (no (unknown) (unknown) 11/26/21 (units (unkno wn) date) unknown) (unknown) (no (unknown) (unknown) 11/26/21 1351 (units ( unknown) date) unknown) (unknown) (no (unknown) (unknown) 13:37 (units (unkno wn) date) unknown) (unknown) (no (unknown) (unknown) [place] [address] (unit s (unknown) date) unknown) (unknown) (no (unknown) (unknown) COPD (chronic obstructive (units (unknown) date) pulmonary disease) unknown) (unknown) (no (unknown) (unknown) Cancer (units (unkno wn) date) unknown) (unknown) (no (unknown) (unknown) Diabetes mellitus (units (unknown) date) unknown) (unknown) (no (unknown) (unknown) Difficulty Breathing (uni ts (unknown) date) unknown) (unknown) (no (unknown) (unknown) [facility] (units (unknown) date) unknown) (unknown) (no (unknown) (unknown) Gynecology Visit (units (unknown) date) unknown) (unknown) (no (unknown) (unknown) H/O bilateral hip (units (unknown) date) replacements unknown) (unknown) (no (unknown) (unknown) H/O thyroidectomy (units (unknown) date) unknown) (unknown) (no (unknown) (unknown) History of heart disease (units (unknown) date) unknown) (unknown) (no (unknown) (unknown) Hives (units (unkno wn) date) unknown) (unknown) (no (unknown) (unknown) Hypertension (units (u nknown) date) unknown) (unknown) (no (unknown) (unknown) Hypothyroid (units (un known) date) unknown) (unknown) (no (unknown) (unknown) Mental health problem (un its (unknown) date) unknown) (unknown) (no (unknown) (unknown) Myocardial infarction (un its (unknown) date) unknown) (unknown) (no (unknown) (unknown) Nausea (units (unkno wn) date) unknown) (unknown) (no (unknown) (unknown) Signed (units (unkno wn) date) unknown) (unknown) (no (unknown) (unknown) Smoker (units (unkno wn) date) unknown) (unknown) (no (unknown) (unknown) Stroke (units (unkno wn) date) unknown) (unknown) (no (unknown) (unknown) THROAT SWELLING, HIVES (u nits (unknown) date) unknown) (unknown) (no (unknown) (unknown) (no value) (units (unk nown) date) unknown) (unknown) (no (unknown) (unknown) (1) Encounter for (units (unknown) date) postoperative care: unknown) (unknown) (no (unknown) (unknown) [id number] (units (unkno wn) date) unknown) (unknown) (no (unknown) (unknown) 11/26/21 (units (unkno wn) date) unknown) (unknown) (no (unknown) (unknown) Abnormal ultrasound of (u nits (unknown) date) abdomen () unknown) (unknown) (no (unknown) (unknown) Acne () (units (u nknown) date) unknown) (unknown) (no (unknown) (unknown) Acute cholecystitis (unit s (unknown) date) without calculus () un known) (unknown) (no (unknown) (unknown) Affect: normal affect (un its (unknown) date) unknown) (unknown) (no (unknown) (unknown) Age/Sex: 36 / F Date of (units (unknown) date) Service: unknown) (unknown) (no (unknown) (unknown) Allergies (units (unkn own) date) unknown) (unknown) (no (unknown) (unknown) Anesthesia (units (unk nown) date) unknown) (unknown) (no (unknown) (unknown) Appearance: grossly normal (units (unknown) date) unknown) (unknown) (no (unknown) (unknown) Assessment + Plan (units (unknown) date) unknown) (unknown) (no (unknown) (unknown) Attending Dr: Javier Garcia (u nits (unknown) date) Dario SUAREZ unknown) (unknown) (no (unknown) (unknown) Attitude: cooperative (un its (unknown) date) unknown) (unknown) (no (unknown) (unknown) BMI 28.7 (units (un known) date) unknown) (unknown) (no (unknown) (unknown) BP 122/78 (units (u nknown) date) unknown) (unknown) (no (unknown) (unknown) Blood Pressure Location ( units (unknown) date) Rt brachial unknown) (unknown) (no (unknown) (unknown) Chief Complaint (units (unknown) date) unknown) (unknown) (no (unknown) (unknown) Chief Complaint: Two week (units (unknown) date) postop checkup unknown) (unknown) (no (unknown) (unknown) Conjunctivae: conjunctivae (units (unknown) date) normal unknown) (unknown) (no (unknown) (unknown) Const (units (unkno wn) date) unknown) (unknown) (no (unknown) (unknown) Continue routine (units (unknown) date) postoperative care. unknown) (unknown) (no (unknown) (unknown) : 1985 (units (unknown) date) Acct:[id number] unknown) (unknown) (no (unknown) (unknown) Depression (-2010) (units (unknown) date) unknown) (unknown) (no (unknown) (unknown) Dept at . (u nits (unknown) date) unknown) (unknown) (no (unknown) (unknown) Details: (units (unkno wn) date) unknown) (unknown) (no (unknown) (unknown) Diet and Exercise (units (unknown) date) unknown) (unknown) (no (unknown) (unknown) Dietary counseling and (u nits (unknown) date) surveillance unknown) (unknown) (no (unknown) (unknown) Documented By: (units (unknown) date) Javier Bishop MD unknown) 11/26/21 1331 (unknown) (no (unknown) (unknown) EOM: EOM intact (units (unknown) date) bilaterally unknown) (unknown) (no (unknown) (unknown) Ears: hearing grossly (un its (unknown) date) normal bilaterally unknown) (unknown) (no (unknown) (unknown) Ectopic (units (unknown) date) (-06/06/20) unknown) (unknown) (no (unknown) (unknown) Effort + Inspection: (uni ts (unknown) date) normal respiratory effort unkn own) and able to speak in complete (unknown) (no (unknown) (unknown) Nova returns today 2 weeks (units (unknown) date) status post laparoscopic unkno wn) bilateral salpingectomy for (unknown) (no (unknown) (unknown) Exam (units (unkno wn) date) unknown) (unknown) (no (unknown) (unknown) Eyes (units (unkno wn) date) unknown) (unknown) (no (unknown) (unknown) Face and sinus: face (uni ts (unknown) date) symmetric unknown) (unknown) (no (unknown) (unknown) Family History (Reviewed (units (unknown) date) 08/30/21 @ 14:55 by Javier dillon) Jose Bishop MD) (unknown) (no (unknown) (unknown) Father Depression (unit s (unknown) date) unknown) (unknown) (no (unknown) (unknown) Follow-up as needed. (uni ts (unknown) date) unknown) (unknown) (no (unknown) (unknown) GI (units (unkno wn) date) unknown) (unknown) (no (unknown) (unknown) (units (unkno wn) date) unknown) (unknown) (no (unknown) (unknown) General: appearance (unit s (unknown) date) normal, both eyes and all unkn own) related structures (unknown) (no (unknown) (unknown) General: cooperative, (un its (unknown) date) comfortable and no acute unkno wn) distress (unknown) (no (unknown) (unknown) General: deferred (units (unknown) date) unknown) (unknown) (no (unknown) (unknown) Grandfather (u nits (unknown) date) Alzheimer disease unknown) (unknown) (no (unknown) (unknown) Grandfather (u nits (unknown) date) Myocardial infarction unknown) (unknown) (no (unknown) (unknown) Grandmother (u nits (unknown) date) Lung cancer metastatic to unkn own) brain (unknown) (no (unknown) (unknown) Grandmother (units (un known) date) Diverticulitis unknown) (unknown) (no (unknown) (unknown) H/O colonoscopy () ( units (unknown) date) unknown) (unknown) (no (unknown) (unknown) H/O dilation and curettage (units (unknown) date) unknown) (unknown) (no (unknown) (unknown) HENMT (units (unkno wn) date) unknown) (unknown) (no (unknown) (unknown) HPI (units (unkno wn) date) unknown) (unknown) (no (unknown) (unknown) Head: normal to (units (unknown) date) inspection, normocephalic unkn own) and atraumatic (unknown) (no (unknown) (unknown) Hearing loss () (uni ts (unknown) date) unknown) (unknown) (no (unknown) (unknown) Height 5 ft 3 in (unit s (unknown) date) unknown) (unknown) (no (unknown) (unknown) Hemorrhoid () (units (unknown) date) unknown) (unknown) (no (unknown) (unknown) History of UTI () (u nits (unknown) date) unknown) (unknown) (no (unknown) (unknown) History of (units (unk nown) date) esophagogastroduodenoscopy unk nown) (EGD) () (unknown) (no (unknown) (unknown) History of female (units (unknown) date) sterilization unknown) (unknown) (no (unknown) (unknown) Hyperemesis gravidarum (u nits (unknown) date) () unknown) (unknown) (no (unknown) (unknown) Inspection: incision (uni ts (unknown) date) (Laparoscopic port unknown) incisions intact and healing) (unknown) (no (unknown) (unknown) Intake (units (unkno wn) date) unknown) (unknown) (no (unknown) (unknown) Intake Note: (units (u nknown) date) unknown) (unknown) (no (unknown) (unknown) Intake performed by: (uni ts (unknown) date) Petra Lind unknown) (unknown) (no (unknown) (unknown) Intake- Clincial Staff (u nits (unknown) date) unknown) (unknown) (no (unknown) (unknown) Judgment: judgment good ( units (unknown) date) unknown) (unknown) (no (unknown) (unknown) Loc: [facility] (units (unkno wn) date) unknown) (unknown) (no (unknown) (unknown) Low back pain () (units (unknown) date) unknown) (unknown) (no (unknown) (unknown) MRSA (methicillin (units (unknown) date) resistant Staphylococcus unkno wn) aureus) () (unknown) (no (unknown) (unknown) Medical History (Updated (units (unknown) date) 11/26/21 @ 13:51 by Javier dillon) Jose Bishop MD) (unknown) (no (unknown) (unknown) Mental Status: mental (un its (unknown) date) status grossly normal unknown) (unknown) (no (unknown) (unknown) Migraines () (units (unknown) date) unknown) (unknown) (no (unknown) (unknown) Mood: congruent mood (uni ts (unknown) date) unknown) (unknown) (no (unknown) (unknown) Mother Brain tumor (uni ts (unknown) date) (benign) unknown) (unknown) (no (unknown) (unknown) Neck (units (unkno wn) date) unknown) (unknown) (no (unknown) (unknown) Neck: normal visual (unit s (unknown) date) inspection unknown) (unknown) (no (unknown) (unknown) Nutritional Appearance: ( units (unknown) date) average body habitus unknown) (unknown) (no (unknown) (unknown) Orientation: alert and (u nits (unknown) date) oriented x3 unknown) (unknown) (no (unknown) (unknown) PFSH (units (unkno wn) date) unknown) (unknown) (no (unknown) (unknown) Painful menstrual periods (units (unknown) date) unknown) (unknown) (no (unknown) (unknown) Palpation: soft, no (unit s (unknown) date) hepatosplenomegaly and unknown ) nontender (unknown) (no (unknown) (unknown) Patient is due for her (u nits (unknown) date) annual exam which will be unkn own) scheduled in the next few (unknown) (no (unknown) (unknown) Patient: Nova Gonzales (units (unknown) date) MR#: [id number] unknown) (unknown) (no (unknown) (unknown) Plan (units (unkno wn) date) unknown) (unknown) (no (unknown) (unknown) Position Sitting (unit s (unknown) date) unknown) (unknown) (no (unknown) (unknown) depression (un its (unknown) date) associated with second unknown ) (unknown) (no (unknown) (unknown) Problem-specific ROS (uni ts (unknown) date) positives included with the un known) HPI (unknown) (no (unknown) (unknown) Psych (units (unkno wn) date) unknown) (unknown) (no (unknown) (unknown) Pt here for PO visit (uni ts (unknown) date) following tubal ligation on un known) 11/01 (unknown) (no (unknown) (unknown) ROS (units (unkno wn) date) unknown) (unknown) (no (unknown) (unknown) ROS Narrative (units ( unknown) date) unknown) (unknown) (no (unknown) (unknown) ROS Narrative: (units (unknown) date) unknown) (unknown) (no (unknown) (unknown) Reason For Visit (units (unknown) date) unknown) (unknown) (no (unknown) (unknown) Recurrent urinary tract ( units (unknown) date) infection (12/10/15) unknown) (unknown) (no (unknown) (unknown) Resp (units (unkno wn) date) unknown) (unknown) (no (unknown) (unknown) Rib pain on left side (un its (unknown) date) () unknown) (unknown) (no (unknown) (unknown) Right flank pain (-2014) (units (unknown) date) unknown) (unknown) (no (unknown) (unknown) Safety (units (unkno wn) date) unknown) (unknown) (no (unknown) (unknown) Sclera: sclerae normal (u nits (unknown) date) unknown) (unknown) (no (unknown) (unknown) Sepsis () (units (unknown) date) unknown) (unknown) (no (unknown) (unknown) Signed By: (units (unk nown) date) <Electronically signed by unkn own) Javier Bishop MD> (unknown) (no (unknown) (unknown) Smoking Status: Never (un its (unknown) date) smoker unknown) (unknown) (no (unknown) (unknown) Social History (units (unknown) date) unknown) (unknown) (no (unknown) (unknown) Spasm of left piriformis (units (unknown) date) muscle () unknown) (unknown) (no (unknown) (unknown) Speech and Movement: (uni ts (unknown) date) speech and movement normal unk nown) (unknown) (no (unknown) (unknown) Status post laparoscopic (units (unknown) date) cholecystectomy (-03/01/20) un known) (unknown) (no (unknown) (unknown) Surgical History (Updated (units (unknown) date) 11/01/21 @ 08:35 by unknown) Ravin Power RN) (unknown) (no (unknown) (unknown) This note may have been ( units (unknown) date) all or partially generated unk nown) using voice recognition (unknown) (no (unknown) (unknown) Thought Content: normal ( units (unknown) date) unknown) (unknown) (no (unknown) (unknown) Thought Process: normal ( units (unknown) date) unknown) (unknown) (no (unknown) (unknown) Tobacco + Substance Use ( units (unknown) date) unknown) (unknown) (no (unknown) (unknown) Tobacco Status (units (unknown) date) unknown) (unknown) (no (unknown) (unknown) Type(s) of exercise: (uni ts (unknown) date) walking and normal ROM and unk nown) activity ([phone] steps/day (unknown) (no (unknown) (unknown) Vaginal yeast infection ( units (unknown) date) () unknown) (unknown) (no (unknown) (unknown) Visit Reasons: PO - tbl (units (unknown) date) 11/01 unknown) (unknown) (no (unknown) (unknown) Vitals (units (unkno wn) date) unknown) (unknown) (no (unknown) (unknown) Weight 162 lb (units (unknown) date) unknown) (unknown) (no (unknown) (unknown) alcohol intake: former (u nits (unknown) date) unknown) (unknown) (no (unknown) (unknown) are healing well. (units (unknown) date) Pathology confirms removal unk nown) of both fallopian tubes. (unknown) (no (unknown) (unknown) ay occur. Occasional (un its (unknown) date) wrong-word or 'sound-alike' un known) substitutions may have (unknown) (no (unknown) (unknown) caffeine: No (units (u nknown) date) unknown) (unknown) (no (unknown) (unknown) caregiver/support person: (units (unknown) date) No unknown) (unknown) (no (unknown) (unknown) codeine Adverse Reaction (units (unknown) date) (Intermediate, Verified unknow n) 11/01/21 10:40) (unknown) (no (unknown) (unknown) current occupational (uni ts (unknown) date) exposures/hazards: Yes unknown ) (Home septic leak into well water; (unknown) (no (unknown) (unknown) daily servings fruits/veg: (units (unknown) date) 0-1 unknown) (unknown) (no (unknown) (unknown) do you feel safe at home: (units (unknown) date) Yes unknown) (unknown) (no (unknown) (unknown) during the past year (uni ts (unknown) date) weight has: remained stable un known) (unknown) (no (unknown) (unknown) education level: master's (units (unknown) date) degree (in 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 ) (unknown) (no (unknown) (unknown) gallbladder removal. Would (units (unknown) date) like referral to unknown) nutionist.) (unknown) (no (unknown) (unknown) have occurred. If there (units (unknown) date) are any questions, please unkn own) contact the Medical Records (unknown) (no (unknown) (unknown) her postop checkup. She (units (unknown) date) is doing well and is having un known) no issues. Her incisions (unknown) (no (unknown) (unknown) household members: (units (unknown) date) significant other and unknown) children (unknown) (no (unknown) (unknown) housing: other (units (unknown) date) (Double-wide trailer.) unknown ) (unknown) (no (unknown) (unknown) hydrocodone [From Vicodin] (units (unknown) date) Allergy (Intermediate, unknown ) Verified 11/01/21 10:40) (unknown) (no (unknown) (unknown) lives independently: Yes (units (unknown) date) unknown) (unknown) (no (unknown) (unknown) marital status: (units (unknown) date) unmarried,living together unkn own) (unknown) (no (unknown) (unknown) normally.) (units (unk nown) date) unknown) (unknown) (no (unknown) (unknown) number of children: 6 (un its (unknown) date) unknown) (unknown) (no (unknown) (unknown) occupational status: (uni ts (unknown) date) 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 ) (unknown) (no (unknown) (unknown) occurred due to the (unit s (unknown) date) inherent limitations of unknow n) voice recognition software. Please (unknown) (no (unknown) (unknown) pets and animals: Yes (1 (units (unknown) date) cat, dog, bird, rabbit, unknow n) snake: aware of cat (unknown) (no (unknown) (unknown) precautions. ) (units (unknown) date) unknown) (unknown) (no (unknown) (unknown) read the note carefully ( units (unknown) date) and recognize, using unknown) context, where these substitutions (unknown) (no (unknown) (unknown) seatbelt use: always (uni ts (unknown) date) unknown) (unknown) (no (unknown) (unknown) second hand exposure: No (units (unknown) date) unknown) (unknown) (no (unknown) (unknown) sentences (units (unkn own) date) unknown) (unknown) (no (unknown) (unknown) software. 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 (units (unkno wn) date) unknown) (unknown) (no (unknown) (unknown) well-balanced diet: rarely (units (unknown) date) or never (Hyperemesis, also un known) diet restrictions due to Social History date description facility (no date) Never smoked tobacco ([facility] Vital Signs date measurement value units [id number] BP_diastolic BP_diastolic 70 mm[H g] [id number]+0000 BP_systolic BP_systolic 118 mm[Hg] [id number]+0000 height_metric height_metric 160.02 cm [id number]+0000 height_standard height_standard 63 in +0000 BP_diastolic BP_diastolic 70 mm[H g] [id number]+0000 BP_diastolic BP_diastolic 74 mm[H g] +0000 BP_systolic BP_systolic 110 mm[Hg] [id number]+0000 BP_systolic BP_systolic 124 mm[Hg] [id number]+0000 heart_rate heart_rate 77 /min +0000 heart_rate heart_rate 88 /min [id number]+0000 height_metric height_metric 161.29 cm [id number]+0000 height_standard height_standard 63.5 in +0000 respiration_rate respiration_rate 16 /min [id number]+0000 temperature_metric temperature_metric 36.22 C +0000 temperature_metric temperature_metric 36.78 C +0000 temperature_standard temperature_standard 9 7.2 F +0000 temperature_standard temperature_standard 9 8.2 F +0000 BMI BMI 28.7 kg/m2 +0000 BP_diastolic BP_diastolic 78 mm[H g] +0000 BP_systolic BP_systolic 122 mm[Hg] +0000 height_metric height_metric 160.02 cm +0000 height_standard height_standard 63 in +0000 weight_metric weight_metric 33.33 kg +0000 weight_standard weight_standard 73.48 lb
--- NOTE | 2021-12-24 13:45 | ED Physician Documentation ---
PD HPI FOCAL NEURO - Stated complaint Stated Complaint: L ARM NUMBNESS/DIZZY - Chief complaint Chief Complaint: Neuro - History obtained from History obtained from: Patient - Additional information Additional information: 36-year-old woman with history of preeclampsia after delivery a few months ago as she was induced at 34 weeks. Otherwise healthy. No alcohol or drug use and no smoking. She woke up on Thursday and had a sensation of left-sided numbness with foot swelling. It went away after half an hour or so. She developed this again today after waking up around 1030 this morning and has been more persistent. It was associated with a gradual onset moderate headache that she could not pinpoint in the head and is now gone. She also had some stomach upset with it which is also now gone. Review of Systems Ten Systems: 10 systems reviewed and negative Constitutional: reports: Reviewed and negative Throat: reports: Reviewed and negative Cardiac: reports: Reviewed and negative Respiratory: reports: Reviewed and negative PD PAST MEDICAL HISTORY - Past Medical History Cardiovascular: None Neuro: None Endocrine/Autoimmune: None : Chronic bladder infection Musculoskeletal: None - Past Surgical History Past Surgical History: Yes General: Colonoscopy - Present Medications Home Medications: Ambulatory Orders Medication Instructions Recorded Confirmed Clindamycin [Cleocin] 300 mg PO Q6H 7 Days capsule 09/02/16 Amox/Clav 875/125 [Augmentin] 1 each PO Q12H #10 tablet 08/13/18 Clotrimazole/Betamethasone Dip 1 applic TP BID #15 cream..g. 11/04/18 [Lotrisone Cream] Naproxen 500 mg PO BID #20 tablet 11/04/18 Benzonatate [Tessalon Perle] 100 mg PO BID #7 capsule 07/10/19 Ondansetron Odt [Zofran] 4 mg TL Q6H PRN #10 tablet 06/17/21 - Allergies Allergies/Adverse Reactions: Allergies Allergy/AdvReac Type Severity Reaction Status Date / Time eggplant Allergy Hives Verified 12/24/21 13:37 - Social History Does the pt smoke?: No Smoking Status: Never smoker Does the pt drink ETOH?: No Does the pt have substance abuse?: No - Immunizations Immunizations are current?: No Immunizations: TDAP >10years/unknown PD ED PE NORMAL - Vitals Vital signs reviewed: Yes - General General: Alert and oriented X 3, No acute distress - HEENT HEENT: PERRL, EOMI - Neck Neck: Supple, no meningeal sign, No bony TTP - Cardiac Cardiac: RRR, No murmur - Respiratory Respiratory: No respiratory distress, Clear bilaterally - Abdomen Abdomen: Normal bowel sounds, Soft, Non tender - Back Back: No CVA TTP, No spinal TTP - Derm Derm: Normal color, Warm and dry - Extremities Extremities: No edema, No calf tenderness / cord - Neuro Neuro: Alert and oriented X 3, No motor deficit, Normal speech Eye Opening: Spontaneous Motor: Obeys Commands Verbal: Oriented GCS Score: 15 - Psych Psych: Normal mood, Normal affect NIHSS - Time Time: 13:40 - Level of Consciousness Level of consciousness: (0) Alert, Keenly responsive LOC Questions: (0) Answers both Q's correct LOC Commands: (0) Performs both correctly - Gaze Best Gaze: (0) Normal - Visual Visual: (0) No loss - Facial Palsy Facial Palsy: (0) Normal, symmetrical movement - Motor Arms (both separate) Motor Arm (right): (0) No drift Motor Arm (left): (0) No drift - Motor Legs (both separate) Motor Leg (right): (0) No drift Motor Leg (left): (0) No drift - Limb Ataxia Limb Ataxia: (0) Absent - Sensory Sensory: (1) [id number] loss (She has modest loss of sensation that involves the entire left side and does not spare the forehead) - Best Language Best Language: (0) No aphasia - Dysarthria Dysarthria: (0) Normal - Extinction and Inattention (formally neg Extinction and inattention: (0) No abnormality - Total Score/Results Total Score/Result: 1 Results - Vitals Vitals: Vital Signs - 24 hr 12/24/21 12/24/21 12/24/21 13:32 13:36 15:36 Temperature 36.9 C Heart Rate 81 74 63 Respiratory 12 15 18 Rate Blood Pressure 112/91 H 119/87 H 113/88 H O2 Saturation 100 96 97 Oxygen O2 Source Room air - EKG (time done) 1352 Rate: Rate (enter#) (63) Rhythm: NSR [place]: Normal Intervals: Normal IN QRS: Normal Ischemia: Normal ST segments - Labs Labs: Laboratory Tests 12/24/21 12/24/21 13:59 13:59 WBC 5.2 RBC 4.31 Hgb 13.2 Hct 38.7 MCV 89.8 MCH 30.6 MCHC 34.1 RDW 12.3 Plt Count 309 MPV 10.3 Neut # (Auto) 3.3 Lymph # (Auto) 1.3 L [place] # (Auto) 0.4 Eos # (Auto) 0.1 Baso # (Auto) 0.0 Absolute Nucleated RBC 0.00 Nucleated RBC % 0.0 Sodium 137 Potassium 3.8 Chloride 108 Carbon Dioxide 20 L Anion Gap 9.0 BUN 14 Creatinine 0.6 Estimated GFR (MDRD) 114 Glucose 86 Calcium 9.2 PD MEDICAL DECISION MAKING - ED course ED course: 36-year-old woman with left-sided paresthesias involving the face arm and leg all on the left and not sparing the forehead. She woke up with it this morning. No other neurologic findings. It is associated with a mild intermittent headache. MRI of the brain was done without positive findings suggestive that this is related to migraine. Offered migraine medication but she declined. Departure - Departure Disposition: 01 Home, Self Care Clinical Impression: Stroke-like symptoms Condition: Good Record reviewed to determine appropriate education?: Yes Instructions: ED Headache Migraine Comments: You are seen today for left arm face and leg numbness. This would suggest a brain cause. Thankfully your MRI was negative and by process of illumination this is probably migrainous. Return if worse, follow-up with your doctor tomorrow if not better. Discharge Date/Time: 12/24/21 16:06
[2021-12-24 14:06] LABS: BASOPHILS % (AUTO) 0.8 %; EOSINOPHILS # (AUTO) 0.1 10^3/uL (0.0-0.7); EOSINOPHILS % (AUTO) 2.3 %; HCT - HEMATOCRIT 38.7 % (37.0-47.0); HGB - HEMOGLOBIN 13.2 g/dL (12.0-16.0); LYMPHOCYTES # (AUTO) 1.3 10^3/uL (1.5-3.5); MEAN CORPUSCULAR HEMOGLOBIN 30.6 pg (27.0-31.0); MEAN CORPUSCULAR HGB CONC 34.1 g/dL (32.0-36.0); MEAN CORPUSCULAR VOLUME 89.8 fL (81.0-99.0); MEAN PLATELET VOLUME 10.3 fL (7.9-10.8); MONOCYTES # (AUTO) 0.4 10^3/uL (0.0-1.0); MONOCYTES % (AUTO) 7.4 %; NEUTROPHILS # (AUTO) 3.3 10^3/uL (1.5-6.6); NEUTROPHILS % (AUTO) 64.3 %; PLT - PLATELET COUNT 309 10^3/uL (130-450); RED BLOOD COUNT 4.31 10^6/uL (4.20-5.40); RED CELL DISTRIBUTION WIDTH 12.3 % (12.0-15.0); WHITE BLOOD COUNT 5.2 x10^3/uL (4.8-10.8)
[2021-12-24 14:16] LABS: CALCIUM 9.2 mg/dL (8.5-10.3); CREATININE 0.6 mg/dL (0.4-1.0); POTASSIUM 3.8 mmol/L (3.5-5.0)
--- NOTE | 2021-12-24 15:31 | MRI Report ---
PROCEDURE: Brain W/O INDICATIONS: Stroke symptoms TECHNIQUE: Noncontrast axial T1 spin echo, axial T2 fast spin echo, sagittal and axial FLAIR, coronal T2 fast sp in echo, axial gradient echo, axial diffusion and ADC through the brain. COMPARISON: None. FINDINGS: Image quality: Excellent. CSF Spaces: Basal cisterns are patent. No extra-axial fluid collections. Ventricles are normal in size and shape. Brain: No intracranial masses or hemorrhage. Núñez/white matter interface is normal. Brainstem appe ars normal. Diffusion-weighted images demonstrate no acute ischemic insult. No chronic ischemic ins ults. Normal intravascular flow voids are present. Skull and face: Calvarium has normal marrow signal. Orbits appear normal. Sinuses: Sinuses and mastoids are clear. IMPRESSION: Normal MRI brain. Reviewed by: Rajinder Segura MD on 12/24/2021 3:30 PM PDT Approved by: Rajinder Segura MD on 12/24/2021 3:30 PM PDT Station ID: [id number]
[2021-12-24 15:40] VITALS: BP 113/88
== END 2021-12-24 16:06 | disposition home or self-care (01) ==
LOC: EDUNIT# → ED 13:21
DX: R20.0 Anesthesia of skin (principal); R51.9 Headache, unspecified
CPT/HCPCS: 36415; 80048; 85025; 93005; 99284